=== PATIENT | female | born 1930 | race Caucasian/White ===

== ENCOUNTER 2017-05-01 04:56 | Inpatient (IN) | payer OTHER ==
[~2017-05-01] VITALS: Ht 154.9 cm; Wt 72.3 kg
[~2017-05-01 04:56] MED LIST: ASPIRIN EC81 M1 PO; CARVEDILOL6.25 M1 PO; COSOPT EYE DROP10 ML OD; FISH OIL 1,2001 EACH PO; FUROSEMIDE40 M1 PO; LASIX40 M1 PO; LATANOPROST2.5 ML OU; METAMUCIL660 GM PO; MULTIVITAMINS1 EAC9 PO; PRESERVISION A1 EAC1 PO; VITAMIN D1000 UNIT PO; ZETIA10 M1 PO
--- NOTE | 2017-05-01 05:02 | ED DYSPNEA/ASTHMA COMPLAINT ---
History of Present Illness General Chief Complaint: Dyspnea (COPD, CHF, Other) Stated Complaint: BIBA CHF? Source: patient Exam Limitations: no limitations Vital Signs & Intake/Output Vital Signs & Intake/Output Vital Signs Date Time Temp Pulse Resp B/P B/P Pulse O2 O2 Flow FiO2 Mean Ox Delivery Rate 05/01 712 97.4 68 18 112/60 98 Room Air 05/01 0514 98 Nasal 2.0L Cannula 05/01 509 97.8 63 20 118/60 98 Nasal 2.0L Cannula Allergies Coded Allergies: Penicillins (Intermediate, RASH 02/17/17) Reconcile Medications Aspirin (Ecotrin*) 81 MG TABLET.DR 1 TAB PO DAILY HEART/BLOOD (Reported) Carvedilol 6.25 MG TABLET 1 TAB PO BID HEART/BP (Reported) Cholecalciferol (Vitamin D3) (Vitamin D) 1,000 UNIT TABLET 1 TAB PO DAILY SUPPLEMENT (Reported) Dorzolamide HCl/Timolol Maleat (Cosopt Eye Drops) 22.3 MG-6.8 MG/ML DROPS 1 GTT OD BID RIGHT EYE (Reported) Ezetimibe (Zetia) 10 MG TABLET 1 TAB PO DAILY CHOLESTEROL (Reported) Fish Oil/Dha/Epa (Fish Oil 1,200 MG Fish Oil) 1,200 MG-144 MG-216 MG CAPSULE 1 CAP PO DAILY SUPPLEMENT (Reported) Furosemide (Lasix) 40 MG TABLET 1.5 TAB PO DAILY water pill Latanoprost 0.005 % DROPS 1 GTT OU QPM BOTH EYES (Reported) Multiple Vitamin (Multivitamins) 1 EACH TABLET 1 TAB PO DAILY SUPPLEMENT ( Reported) Psyllium Husk (Metamucil) (Unknown Strength) POWDER (Unknown Dose) PO BID SUPPLEMENT (Reported) Vit C/E/Zn/Coppr/Lutein/Zeaxan (Preservision Areds 2 Softgel) 250-200-40 CAPSULE 1 CAP PO BID SUPPLEMENT (Reported) Triage Nurses Notes Reviewed? yes Onset: Gradual Duration: hour(s):, week(s): Timing: recent history Severity: moderate, severe Activities at Onset: sleep Modifying Factors: Worsens With: other (ORTHOPNEA). Associated Symptoms: SHORTNESS OF BREATH HPI: 87 yo woman h/o cabg and chf, presents with shortness of breath tonight. She shares that, "Since I got a bad virus in March, I've had a hard time breathing.... They say that I have CHF... and then tonight I had real trouble breathing... I tried to lay down and couldn't catch my breath." 911 called. The medics arrived and found her tachypneic, 02 sat 89%. She was given 02 via nc, nitro x 2. She sat up. Upon arrival, her symptoms had mostly resolved. She notes lower extremity symmetrical edema. She has been compliant with her diet and her meds. She does not have chest pain, wheezing, phlegm. (Romel SCHAFER,Brian Morse) Past History Travel History Traveled to [place] past 21 day No Medical History Any Pertinent Medical History? see below for history Neurological: NONE EENT: NONE Cardiovascular: CHF, TRIPLE BYPASS 2012 Respiratory: NONE Gastrointestinal: NONE Hepatic: NONE Renal: NONE Musculoskeletal: NONE Psychiatric: NONE Endocrine: NONE Blood Disorders: NONE Cancer(s): NONE STEP DOWN NURSE/Reproductive: NONE History of MRSA: No History of VRE: No History of CDIFF: No Influenza Vaccine: 12/23/16 Surgical History Surgical History: CABG Psychosocial History Who do you live with Spouse What is your primary language Wolof Family History Hx Contributory? No (Romel SCHAFER,Brian Morse) Review of Systems Review of Systems Constitutional: Reports: no symptoms. EENTM: Reports: no symptoms. Respiratory: Reports: no symptoms. Cardiovascular: Reports: no symptoms. GI: Reports: no symptoms. Genitourinary: Reports: no symptoms. Musculoskeletal: Reports: no symptoms. Skin: Reports: no symptoms. Neurological/Psychological: Reports: no symptoms. Hematologic/Endocrine: Reports: no symptoms. Immunologic/Allergic: Reports: no symptoms. All Other Systems: Reviewed and Negative (Romel SCHAFER,Brian Morse) Physical Exam Physical Exam General Appearance: well developed/nourished, mild distress Head: atraumatic, normal appearance Eyes: Bilateral: normal appearance. Ears, Nose, Throat: normal pharynx, normal ENT inspection Neck: normal inspection, supple, full range of motion Respiratory: diminished breath sounds bilaterally Cardiovascular: regular rate/rhythm Gastrointestinal: normal bowel sounds, soft, non-tender, no organomegaly Rectal: normal exam, normal rectal tone, heme negative stool Extremities: 3-4+ bilateral pitting edema, Neurologic/Psych: no motor/sensory deficits, awake, alert, oriented x 3 Skin: intact, normal color Core Measures ACS in differential dx? No CVA/TIA Diagnosis No Sepsis Present: No Sepsis Focused Exam Completed? No (Romel SCHAFER,Brian Morse) Progress Differential Diagnosis: asthma, AMI, CHF, COPD, pneumonia Plan of Care: Orders Procedure Date/time Status Heart Healthy Diet 05/01 L Active Misc Message 05/01 0758 Active ED Holding Orders 05/01 0758 Active Admit to inpatient 05/01 0758 Active Vital Signs 05/01 0758 Active Code Status 05/01 0758 Active Add-on Test (ER Only) 05/01 0717 Active PARTIAL THROMBOPLASTIN TIME 05/01 0527 Complete PROTHROMBIN TIME 05/01 0527 Complete RAPID VIRAL INFLUENZA A 05/01 0522 Complete D-DIMER 05/01 0503 Complete TROPONIN LEVEL 05/01 0502 Complete LIPASE 05/01 0502 Complete HEPATIC FUNCTION PANEL 05/01 0502 Complete CBC WITHOUT DIFFERENTIAL 05/01 0502 Complete B-TYPE NATRIURETIC PEP (BNP) 05/01 0502 Complete BASIC METABOLIC PANEL 05/01 0502 Complete AMYLASE 05/01 0502 Complete EKG 05/01 0459 Active Current Medications Sig/Raghu Start time Last Medication Dose Stop Time Status Admin Heparin Sodium 25,000 UNIT Q24H 05/01 0700 UNVr 05/01 (Porcine) 0723 (Heparin) Sodium Chloride 500 ML Laboratory Tests 05/01/17 0527: Anion Gap 14, Estimated GFR 27 L, BUN/Creatinine Ratio 19.4, Glucose 108 H, Calcium 9.3, Total Bilirubin 0.8, Direct Bilirubin 0.4, AST 26, ALT 31, Alkaline Phosphatase 117, Troponin I 0.02, Qew-Y-Hxcksdfiymr Pept 15980 H, Total Protein 7.1, Albumin 3.9, Amylase 57, Lipase 355 H, PT 13.9 H, INR 1.33 H, APTT > 120 *H, D-Dimer High Sensitivty 838 H, CBC w Diff NO MAN DIFF REQ, RBC 3.22 L, MCV 103.7 H, MCH 33.5 H, MCHC 32.3 L, RDW 16.9 H, MPV 9.5, Gran % 57.5, Lymphocytes % 24.0, Monocytes % 13.3 H, Eosinophils % 4.6, Basophils % 0.6, Absolute Granulocytes 3.0, Absolute Lymphocytes 1.3, Absolute Monocytes 0.7 H, Absolute Eosinophils 0.2, Absolute Basophils 0 Microbiology 05/01 0435 NASOPHARYN: Influenza Virus A & B Rapid Smear - COMP Diagnostic Imaging: Viewed by Me: Radiology Read. Discussed w/RAD: Radiology Read. CXR Impression: PATIENT: TONIO RAMIREZ PRESENT AGE : 87 PATIENT ACCOUNT NO: [id number] : [birth year] LOCATION: [facility] ORDERING PHYSICIAN: Brian Urena MD SERVICE DATE: 05/01/17 EXAM TYPE: RAD - XRY-PORTABLE CHEST XRAY EXAMINATION: XR PORTABLE CHEST CLINICAL INFORMATION: Dyspnea COMPARISON: 02/19/2017 TECHNIQUE: Portable frontal view of the chest was obtained. FINDINGS: Lung volumes are symmetric. No focal consolidation is seen. There is linear atelectasis/scarring in the right midlung. No evidence of pneumothorax. Trace pleural effusions cannot be excluded. No overt pulmonary edema. The cardiac silhouette remains enlarged. Sternal wires are present. No acute osseous findings are seen. IMPRESSION: Possible trace pleural effusions. No focal consolidation. Enlarged cardiac silhouette. DICTATED BY: Jamie Romero MD DATE/TIME DICTATED:05/01/17601 [address] RELATIONS ADVISER:RIANA DATE/TIME TRANSCRIBED:05/01/17601 CONFIDENTIAL, DO NOT COPY WITHOUT APPROPRIATE AUTHORIZATION. <Electronically signed in Other Vendor System> SIGNED BY: Jamie Romero MD 05/01/17606 Initial ED EKG: inc lbbb, no change from prior, sinus tach Hand-Off Endorsed To: Antony Burton MD Endorsed Time: 723 Pending: other (hospitalist) (Romel SCHAFER,Brian Morse) Comments: 05/01/2017 7:31:20 AM patient signed out to me by Dr. 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 Patient presented with hypoxia and has elevated d-dimer requiring VQ scan and further evaluation. Awaiting hospitalist call back. 05/01/2017 7:47:03 AM case d/w dr betts who confirms a change was made to hospitalist schedule today. (Josephine SCHAFER,Antony Talamantes) Departure Departure Disposition: STILL A PATIENT Condition: Stable Clinical Impression Primary Impression: Congestive heart failure Secondary Impressions: Dyspnea, Hypoxia Referrals: Bia SCHAFER,Juan Medellin (PCP/Family) Departure Forms: Customer Survey General Discharge Information Comments 05/01/16, 7:06am... discussed with dr. alejandre who will ask dr. woodall to see patient. Admission Note Documentation of Exam: Documentation of any treatments & extenuating circumstances including Concerns Regarding Discharge (functional status, medication knowledge or non-compliance, living conditions, etc.) that warrant an admission rather than observation: pt with hypoxia, dyspnea, most consistent with chf, however, with benign cxr, elevated d-dimer, pt merits evaluation for PE. Due to creatinine of 1.8, pt cannot have ct angio, merits eval with v/q scan. pt placed on heparin. (Romel SCHAFER,Brian Morse) Admission Note Spoke With: Farhan Betts MD Documentation of Exam: Documentation of any treatments & extenuating circumstances including Concerns Regarding Discharge (functional status, medication knowledge or non-compliance, living conditions, etc.) that warrant an admission rather than observation: (Antony Burton MD) Critical Care Note Critical Care Note Critical Care Time: non-applicable (Brian Urena MD) Critical Care Note Critical Care Time: 30-74 min (Antony Burton MD)
[2017-05-01 05:44] LABS: ABSOLUTE BASOPHIL COUNT 0 /CUMM (0.0-0.2); ABSOLUTE EOSINOPHIL COUNT 0.2 /CUMM (0.0-0.7); ABSOLUTE LYMPH COUNT 1.3 /CUMM (1.2-3.4); ABSOLUTE MONOCYTE COUNT 0.7 /CUMM (0.10-0.60); BASOPHIL % 0.6 % (0.0-2.0); EOSINOPHIL % 4.6 % (0-5); GRANULOCYTE % 57.5 % (42.2-75.2); HEMATOCRIT 33.4 % (37-47); MEAN CORPUSCULAR HGB 33.5 PG (27.0-31.0); MEAN CORPUSCULAR HGB CONC 32.3 G/DL (33.0-37.0); MEAN CORPUSCULAR VOLUME 103.7 FL (81.0-99.0); MEAN PLATELET VOLUME 9.5 FL (7.4-10.4); PLATELET COUNT 163 /CUMM (130-400); RBC DISTRIBUTION WIDTH 16.9 % (11.5-14.5); RED BLOOD CELL CT 3.22 /CUMM (4.20-5.40); WHITE BLOOD CELL COUNT 5.3 /CUMM (4.8-10.8)
--- NOTE | 2017-05-01 06:07 | RADIOLOGY REPORT ---
EXAMINATION: XR PORTABLE CHEST CLINICAL INFORMATION: Dyspnea COMPARISON: 02/19/2017 TECHNIQUE: Portable frontal view of the chest was obtained. FINDINGS: Lung volumes are symmetric. No focal consolidation is seen. There is linear atelectasis/scarring in the right midlung. No evidence of pneumothorax. Trace pleural effusions cannot be excluded. No overt pulmonary edema. The cardiac silhouette remains enlarged. Sternal wires are present. No acute osseous findings are seen. IMPRESSION: Possible trace pleural effusions. No focal consolidation. Enlarged cardiac silhouette.
[2017-05-01 07:48] LABS: PT 13.9 SEC (9.4-12.5)
[2017-05-01 07:50] LABS: PTT > 120 SEC (25-37)
--- NOTE | 2017-05-01 09:16 | History & Physical ---
Pollo Blackburn 05/01/17 0907: General Information and HPI MD Statement: I have seen and personally examined TONIO LAKHANI and documented this H&P. The patient is a 87 year old F who presented with a patient stated chief complaint of worsening shortness of breath and increased oxygen requirements. Source of Information: patient Exam Limitations: no limitations History of Present Illness: Ms. Lakhani is a very pleasant 87 year old woman with PMH significant for coronary artery disease status post CABG 3 for severe multivessel disease, long -standing hypertension, hyperlipidemia presents to [facility] ED this morning with a chief complaint of worsening breathing symptoms. Patient states that for the last 2 - 3 nights, she has had a difficult time sleeping and often finds herself breathing hard at night. She denies any associated chest pain. She believes that her symptoms started to get worse when she and her had a upper respiratory virus in January. She was admitted the time and treated for CHF exacerbation. Upon discharge, her Lasix dose was increased to 60 mg daily from 40 mg daily. Since then, patient's breathing symptoms have progressively worsened. She was able to walk across 3 grocery stores prior to that, and now can only walk 24-36 feet before she gets short of breath. She has also noticed periods of palpitation, which she attributes to her frequent changes in medication. She has also noticed progressively worsening leg swelling, despite being extremely compliant with her Lasix and diet. Positive history for orthopnea, which is not new, patient has been sleeping in a recliner since her CABG in 2012. Since patient's discharge in February 2017, she has seen her advertising assistant Dr. Houston for persistently high heart rate. Her heart rate has gone as high as mid 120s since her discharge. Following this, a cardiology dose was increased from 6.25 mg twice a day to 25 mg twice a day. She still has been having some intermittent tachycardia. She has also had periods of lightheadedness, but no loss of consciousness or falls. Patient is ambulatory at baseline without a walker or cane and is in good functional status. She lives at home with her . Her last echocardiogram, it seems was in August 2016, and did show systolic as well as diastolic heart failure. Also, patient states that she was recently started on Entresto by Dr. Houston for heart failure. Review of systems is also positive for cough with scant clear sputum production, which has decreased over the last 1 month. No fevers or chills reported. Other systems reviewed and negative, exceptions above. Allergies/Medications Allergies: Coded Allergies: Penicillins (Intermediate, RASH 02/17/17) Home Med list Aspirin (Ecotrin*) 81 MG TABLET.DR 1 TAB PO DAILY HEART/BLOOD (Reported) Carvedilol 25 MG TABLET 1 TAB PO BID Heart (Reported) Cholecalciferol (Vitamin D3) (Vitamin D) 1,000 UNIT TABLET 1 TAB PO DAILY SUPPLEMENT (Reported) Dorzolamide HCl/Timolol Maleat (Cosopt Eye Drops) 22.3 MG-6.8 MG/ML DROPS 1 GTT OD BID RIGHT EYE (Reported) Ezetimibe (Zetia) 10 MG TABLET 1 TAB PO DAILY CHOLESTEROL (Reported) Fish Oil/Dha/Epa (Fish Oil 1,200 MG Fish Oil) 1,200 MG-144 MG-216 MG CAPSULE 1 CAP PO DAILY SUPPLEMENT (Reported) Furosemide (Lasix) 40 MG TABLET 1.5 TAB PO DAILY water pill Latanoprost 0.005 % DROPS 1 GTT OU QPM BOTH EYES (Reported) Multiple Vitamin (Multivitamins) 1 EACH TABLET 1 TAB PO DAILY SUPPLEMENT ( Reported) Psyllium Husk (Metamucil) (Unknown Strength) POWDER (Unknown Dose) PO BID SUPPLEMENT (Reported) Sacubitril/Valsartan (Entresto 24 MG-26 MG Tablet) 24 MG-26 MG TABLET 1 TAB PO DAILY HEART FAILURE (Reported) Vit C/E/Zn/Coppr/Lutein/Zeaxan (Preservision Areds 2 Softgel) 250-200-40 CAPSULE 1 CAP PO BID SUPPLEMENT (Reported) Past History Travel History Traveled to [place] past 21 day No Medical History Neurological: NONE EENT: NONE Cardiovascular: CHF, TRIPLE BYPASS 2012 Respiratory: NONE Gastrointestinal: NONE Hepatic: NONE Renal: NONE Musculoskeletal: NONE Psychiatric: NONE Endocrine: NONE Blood Disorders: NONE Cancer(s): NONE 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 Exam & Diagnostic Data Last 24 Hrs of Vital Signs/I&O Vital Signs Date Time Temp Pulse Resp B/P B/P Pulse O2 O2 Flow FiO2 Mean Ox Delivery Rate 05/01 07 97.4 68 18 112/60 98 Room Air 05/01 0514 98 Nasal 2.0L Cannula 05/01 05 97.8 63 20 118/60 98 Nasal 2.0L Cannula Intake & Output 05/01 1600 05/01 0800 05/01 0000 Intake Total Output Total Balance Patient 161 lb Weight Weight Standing Scale Measurement Method Physical Exam General Appearance Alert, Oriented X3, Cooperative, Mild Distress Sepsis Skin Exam (color): Normal for Ethnicity HEENT Atraumatic, PERRLA, Mucous Membr. moist/pink Cardiovascular Regular Rate, Normal S1, Normal S2 Lungs bilateral bibasilar crackles. Otherwise good air movement and upper and middle lobe. Abdomen Normal Bowel Sounds, Soft, distended. Extremities No Clubbing, 2+ pitting edema bilaterally., no tenderness. Last 24 Hrs of Labs/Jose Guadalupe: Laboratory Tests 05/01/17 0527: Anion Gap 14, Estimated GFR 27 L, BUN/Creatinine Ratio 19.4, Glucose 108 H, Calcium 9.3, Total Bilirubin 0.8, Direct Bilirubin 0.4, AST 26, ALT 31, Alkaline Phosphatase 117, Troponin I 0.02, Bxo-P-Wkqwwehzsmw Pept 61105 H, Total Protein 7.1, Albumin 3.9, Amylase 57, Lipase 355 H, PT 13.9 H, INR 1.33 H, APTT > 120 *H, D-Dimer High Sensitivty 838 H, CBC w Diff NO MAN DIFF REQ, RBC 3.22 L, MCV 103.7 H, MCH 33.5 H, MCHC 32.3 L, RDW 16.9 H, MPV 9.5, Gran % 57.5, Lymphocytes % 24.0, Monocytes % 13.3 H, Eosinophils % 4.6, Basophils % 0.6, Absolute Granulocytes 3.0, Absolute Lymphocytes 1.3, Absolute Monocytes 0.7 H, Absolute Eosinophils 0.2, Absolute Basophils 0 Microbiology 05/01 0535 NASOPHARYN: Influenza Virus A & B Rapid Smear - COMP Diagnostic Data EKG Results Sinus tachycardia-109. LVH plus IVCD. Abnormal EKG. CXR Results Possible trace pleural effusions. No focal consolidation. Enlarged cardiac silhouette. Assessment/Plan Assessment: 87-year-old woman with significant cardiac history here with progressive shortness of breath since February 2017, adherent with diuretic and diet recommendations, no physical exam evidence of acute on chronic CHF except for worsening leg swelling, with a proBNP less than previous admission, chest x-ray unrevealing of any pulmonary edema, but with a 1 month history of persistent tachycardia, uncontrolled with the use of higher doses of beta zena presentation concerning for thromboembolism-(acute versus subacute) versus CHF exacerbation. 1. Rule out pulmonary embolism: Moderate risk group, by well's criteria. D- dimer in indeterminant range for patient's age. Patient has been started on IV heparin. Needs VQ scan for further management, given tachycardia on today's EKG while on good dose beta zena and also reported history of unexplained tachycardia for 1 month. Echocardiogram. 2.? Acute on chronic CHF. Bibasilar crackles as well as 2+ pitting edema on exam. No JVD, ?no audible S3. Chest x-ray unrevealing of any pulmonary interstitial edema. ProBNP less than previous visit. Please obtain echocardiogram, patient with [place] [employer] functional classification-arguably II now and previous echo more than 6 months ago showing EF 30-35%, may warrant a change in management. Also Given her history of triple -vessel disease requiring CABG and recent episodes of tachycardia, obtaining an echocardiogram will better guide us regarding LV function, RVEF, PA/RV pressures etc. Rule out ACS with serial troponins and EKG. Recommendations regarding diuresis, per cardiology, will await recommendations. Also await recommendations regarding carvedilol dosing as well as Entresto (ARB + Neprilysin inhibitor). Discussed with Dr. Houston - Lasix IV 40 mg daily, will resume Coreg at home dose of 25 mg BID, hold Entresto. Will order VQ scan. 3. Acute on chronic CKD.? Secondary to Lasix or Entresto (recently started). Patient looks euvolemic on exam. She does have bibasilar crackles and long- standing chronic leg edema, no other signs of fluid overload. If kidney function does not improve, may need to rule out obstruction. No fluids for now. CHF diet. IV heparin for DVT prophylaxis. DNR/DNI. Core Measures/Misc (12/04) Acute Coronary Syndrome ACS Diagnosis: No Congestive Heart Failure Congestive Heart Failure Diagnosis No Cerebrovascular Accident CVA/TIA Diagnosis: No VTE (View Protocol) VTE Risk Factors Age>40 No Mechanical VTE Prophylaxis d/t N/A MechProphylax Ordered No VTE Pharm Prophylaxis d/t NA PharmProphylax ordered Sepsis (View protocol) Sepsis Present: No Ami Fairbanks MD 05/01/17 7004: Assessment/Plan As Ranked By This Provider Problem List: 1. Hypertension 2. Hyperlipidemia 3. CHF exacerbation Attending MD Review Statement Attending Statement Attending MD Statement: examined this patient, discuss w/resident/PA/METAL ANNEALER, agreed w/resident/PA/METAL ANNEALER, reviewed EMR data (avail), discussed with nursing, reviewed images Attending Assessment/Plan: 87-year-old female past medical history of coronary artery disease, systolic heart failure with most recent EF being in the 30s who has been seeing Dr. Evin Santos as an outpatient and being treated for acute systolic heart failure. He has recently increased her Lasix dose, started her on Entresto, all in the fairly recent past. She comes in with shortness of breath, tachycardia of unclear etiology and CHRYSTAL. At this point will bring her into telemetry and treat her for a CHF exacerbation with IV Lasix. Will have to hold the arb portion of the Entresto given the CHRYSTAL. We'll continue the beta zena and will repeat her echo. We'll trend her enzymes to make sure there is no acute ischemic component. Given that tachycardia and the ongoing question of pulmonary embolism, will get a VQ scan to rule that out. Until the VQ results will keep her on IV heparin and if negative will switch her to heparin for DVT prophylaxis.
--- NOTE | 2017-05-01 09:22 | Cons- Cardiology ---
General Information and HPI Consulting Request Date of Consult: 05/01/17 Requested By: Ami Fairbanks MD Reason for Consult: Congestive heart failure in a patient with ischemic heart disease and reduced LV function previously. Source of Information: patient, old records Exam Limitations: no limitations History of Present Illness: Kimberlee Lakhani is an 87-year-old female who presented in 12/2012 with severe chest pain. She did not have ST elevation initially but subsequently developed EKG changes and positive troponin. She had an ejection fraction of 35% to 40% with anterior wall motion abnormality. She was sent for cardiac catheterization urgently which was done on 12/27/2012. This showed 30% to 40% ostial left main, 90% proximal LAD followed by a second 80% lesion, 95% circumflex, and 90% ostial and 80% proximal right coronary artery stenosis. Her left ventriculogram showed an ejection fraction of 30% with anterior apical wall motion abnormality. The patient was sent urgently for bypass surgery on 12/28/2012. She also had an intraaortic balloon inserted. She had a left internal mammary bypass to the LAD, and saphenous vein graft to the second marginal branch and the distal right coronary artery. She had a prolonged postoperative period including intubation for 4-5 days and chest tubes to remove pleural fluid. She had some transient atrial fibrillation. She was eventually discharged to rehab and finally home. 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 Subsequently the patient went through a full cardiac rehabilitation program and did very well. When I saw her in 02/2014 she was fully functional and doing some exercise on her own and was totally asymptomatic. She was sent for a followup echo, which was done 02/27/2014 and showed a dilated distal LV and apex with EF 40%, PAP >70 mm Hg, minimal , mild to moderate AR, mod MR, dilated LA. She had a repeat echo in August of 2016 which showed a dilated distal left ventricle with an ejection fraction of 30% to 35%. There was mild to moderate aortic regurgitation and severe pulmonary hypertension. Kimberlee was doing well until 02/17/2017 when she became progressively short of breath and presented to the [facility] emergency department. She was found to be in congestive heart failure by chest x-ray and had a proBNP of 15,700. She was admitted and treated with diuretics. Her followup chest x-ray was improved, and she was discharged on 02/19/2017. I started her on Entresto in February, which she has been tolerating. Dr. Amezquita recently found her to be somewhat tachycardic in his office with a heart rate of 129 on EKG. We discussed this and we increased her Coreg to 12.5 mg twice a day.. When I saw her in the office in February her heart rate was down to 117, and I increased her Coreg to 25 mg twice a day. At her OV in late Mar Kimberlee was feeling somewhat short of breath on exertion. She has mild peripheral edema. Her states when she takes her pulse it can vary sometimes around 100 and sometimes around 50. Kimberlee was also complaining of dizziness, mostly postural, but occasionally when she is walking she gets weak for a second. She does have some occasional palpitations. She is wearing elastic stockings. Her current medical regimen includes carvedilol 25 mg b.i.d., Entresto daily, Zetia, Lasix 60 mg daily, and aspirin. At her office visit on April 18 I referred her to Dr. Perry for an EP evaluation of her persistent tachycardia and sent her for a Holter which actually she has not yet had. Kimberlee now states over the past couple of days she's been more short of breath and unable to lie flat. She has persistent edema. She was recently started on potassium for low potassium. She's had no chest pain, palpitations, dizziness. She was given one dose of IV Lasix and she has been started on heparin, for possibility of PE. Her chest x-ray documented congestive heart failure. Her initial EKG showed a uncertain mechanism supraventricular tachycardia at a rate of about 110, but when I examined her heart rate was 60 on the monitor and I ordered a follow-up EKG, which showed sinus rhythm with 1st degree AV Block. Her initial troponin is negative and her proBNP is 13,400. Allergies/Medications Allergies: Coded Allergies: Penicillins (Intermediate, RASH 02/17/17) Home Med List: Amiodarone HCl 200 MG TABLET 0 PO AD AV Florina Tachycardia On Take 05/04-05/08 1 tablet 3 times a day and then 2 times a day for one week Aspirin (Ecotrin*) 81 MG TABLET.DR 1 TAB PO DAILY HEART/BLOOD (Reported) Carvedilol 25 MG TABLET 1 TAB PO BID Heart (Reported) Cholecalciferol (Vitamin D3) (Vitamin D) 1,000 UNIT TABLET 1 TAB PO DAILY SUPPLEMENT (Reported) Dorzolamide HCl/Timolol Maleat (Cosopt Eye Drops) 22.3 MG-6.8 MG/ML DROPS 1 GTT OD BID RIGHT EYE (Reported) Ezetimibe (Zetia) 10 MG TABLET 1 TAB PO DAILY CHOLESTEROL (Reported) Fish Oil/Dha/Epa (Fish Oil 1,200 MG Fish Oil) 1,200 MG-144 MG-216 MG CAPSULE 1 CAP PO DAILY SUPPLEMENT (Reported) Furosemide (Lasix) 40 MG TABLET 1 TAB PO BID Heart failure Please take as prescribed Latanoprost 0.005 % DROPS 1 GTT OU QPM BOTH EYES (Reported) Multiple Vitamin (Multivitamins) 1 EACH TABLET 1 TAB PO DAILY SUPPLEMENT ( Reported) Psyllium Husk (Metamucil) (Unknown Strength) POWDER (Unknown Dose) PO BID SUPPLEMENT (Reported) Sacubitril/Valsartan (Entresto 24 MG-26 MG Tablet) 24 MG-26 MG TABLET 1 TAB PO DAILY HEART FAILURE (Reported) Vit C/E/Zn/Coppr/Lutein/Zeaxan (Preservision Areds 2 Softgel) 250-200-40 CAPSULE 1 CAP PO BID SUPPLEMENT (Reported) Current Medications: Current Medications Sig/Raghu Start time Last Medication Dose Route Stop Time Status Admin Acetaminophen 650 MG Q6P PRN 05/01 0900 UNVr PO Aspirin Buffered 81 MG DAILY 05/01 1000 UNVr PO Cholecalciferol 400 IU DAILY 05/01 1000 UNVr PO Ezetimibe 10 MG DAILY 05/01 1000 UNVr PO Furosemide 0 .STK-MED ONE 05/01 0522 DC IV Furosemide 40 MG ONCE ONE 05/01 0515 DC 05/01 IV 05/01 0516 0521 Heparin Sodium 0 .STK-MED ONE 05/01 0711 DC (Porcine) .ROUTE Heparin Sodium 5,000 UNIT ONCE ONE 05/01 07 DC 05/01 (Porcine) IV 05/01 0701 0723 Heparin Sodium 25,000 UNIT Q24H 05/01 0700 AC 05/01 (Porcine) IV 0723 Sodium Chloride 500 ML Latanoprost 1 GTT QPM 05/01 2200 UNVr OPH Multivitamins 1 TAB DAILY 05/01 1000 UNVr Therapeutic PO Review of Systems Review of Systems: She has no other complaints in the review of systems Past History Travel History Traveled to [place] past 21 day No Medical History Neurological: NONE EENT: NONE Cardiovascular: CHF, TRIPLE BYPASS 2013 Respiratory: NONE Gastrointestinal: NONE Hepatic: NONE Renal: NONE Musculoskeletal: NONE Psychiatric: NONE Endocrine: NONE Blood Disorders: NONE Cancer(s): NONE 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: 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 Surgical History Surgical History: CABG Exam & Diagnostic Data Vital Signs and I&O Vital Signs Date Time Temp Pulse Resp B/P B/P Pulse O2 O2 Flow FiO2 Mean Ox Delivery Rate 05/01 0713 97.4 68 18 112/60 98 Room Air 05/01 0514 98 Nasal 2.0L Cannula 05/01 0510 97.8 63 20 118/60 98 Nasal 2.0L Cannula Intake & Output 05/01 1600 05/01 0800 05/01 0000 04/30 1600 04/30 0800 04/30 0000 Intake Total Output Total Balance Patient 161 lb Weight Weight Standing Scale Measurement Method Physical Exam: On physical she is fairly comfortable at this time HEENT exam is unremarkable Neck veins are not distended Carotids are normal Chest a few basilar rales Heart regular rhythm, normal rate, grade 2/6 widespread holosystolic murmur Extremities 1-2+ edema Assessment/Plan Assessment/Plan Kimberlee is an 87-year-old female with ischemic heart disease and recurrent congestive heart failure. She is this recently hospitalized for CHF. Her chest x-ray documents CHF and her BNP is elevated. There is question of pulmonary embolism but I think the overwhelming evidence is for congestive heart failure at this point. Interestingly her initial EKG showed a supraventricular tachycardia at a rate of about 110 and her follow-up EKG now shows sinus rhythm with first-degree AV block at a rate of 55. Her enzymes are negative so far. I recommend an echocardiogram since her last echo was 8 or 9 months ago. I recommend serial EKGs and enzymes. I recommend keeping her on IV Lasix for now. I recommend an EP consultation with Dr. Perry which I will arrange. Copies To: Bia SCHAFER,Juan Perry MD,[facility] Consult Acknowledgment - Thank you for your consult request.
[2017-05-01] MEDS ORDERED: CARVEDILOL25 M1 PO (10:33)
[2017-05-01] MEDS ORDERED: ENTRESTO 24 MG1 EACH PO (10:37)
[2017-05-01 11:55] VITALS: BP 124/68
--- NOTE | 2017-05-01 13:44 | Admission Certification ---
Admission Certification Certification Statement - As attending physician, I certify that at the time of - admission, based on clinical presentation, severity of - symptoms, need for further diagnostic testing and - therapeutic interventions, and risk of adverse outcomes - without in-hospital treatment, in my clinical assessment, - this patient requires an acute hospital stay for a minimum - of two nights or longer. I have also considered psychsocial - factors such as support system, advanced age, financial - issues, cognitive issues, and failed out-patient treatments, - past re-admission history, safety of patient, and lack of - compliance as applicable. Specific rationale supporting this admission is: Acute CHF and tachycardia
[2017-05-01 14:44] LABS: PTT > 120 SEC (25-37)
--- NOTE | 2017-05-01 17:20 | NUCLEAR MEDICINE REPORT ---
EXAMINATION: PULMONARY VENTILATION PERFUSION STUDY CLINICAL INFORMATION: Persistent tachycardia and worsening shortness of breath. COMPARISON: No prior lung scan is available for comparison. A chest radiograph dated 05/01/2017, the same date as this lung scan, is available for comparison. TECHNIQUE: Serial gamma scintillation camera images were obtained over the posterior chest during the single breath, equilibrium rebreathing and washout of 10.1 mCi Xe 133 gas. The patient then received 3.6 mCi Tc-99m MAA intravenously and a 6-view perfusion study was performed. FINDINGS: Ventilation images: On the single breath and equilibrium images there is homogeneous distribution of gas bilaterally. During the washout phase there is no abnormal retention. Perfusion images: No segmental perfusion defects are present. There is some heterogeneity in the distribution of activity bilaterally. There is a very small subsegmental perfusion defect at the right lung apex an another tiny subsegmental defect posteriorly in the left mid lung field. Some heterogeneity is present in the other lung [place] but no additional focal anatomic appearing perfusion defects are present. The cardiac silhouette is moderately dilated. The contemporaneous chest radiograph shows possible trace bilateral pleural effusions and an enlarged cardiac silhouette. IMPRESSION: Low probability of pulmonary embolism. Cardiomegaly.
--- NOTE | 2017-05-01 19:46 | Cons- Cardiology ---
General Information and HPI Consulting Request Date of Consult: 05/01/17 Requested By: Tiki SCHAFER,Ami Houston MD, Juan Reason for Consult: Supraventricular tachycardia in the setting of congestive heart failure Source of Information: patient, family, old records Exam Limitations: no limitations History of Present Illness: I was asked by Dr. Juan Houston to see this patient in regards to recurrent supraventricular tachycardia that is been seen several times in association with congestive heart failure. To review her history Mrs. Gibson is an extremely pleasant 87-year-old female with an extensive cardiac history. In December 2012 she suffered an anterior myocardial infarction. Cardiac catheterization done on 12/27/2012 showed a 30-40% ostial left main lesion, and 90% proximal LAD lesion, an 80% more distal LAD lesion, a 95% circumflex lesion, a 95% ostial RCA lesion, an 80% proximal RCA stenosis, and an EF as low as 30% with apical wall motion abnormality. On 12/28/2012 she underwent CABG with a KIRBY to the LAD, saphenous vein graft to the second marginal and a saphenous vein graft to the distal RCA. She did apparently have postoperative paroxysmal atrial fibrillation. Next She was followed closely by Dr. Houston and she has had serial echoes. An echo done on 03/02/2013 showed an apical aneurysm an EF of 40% a dilated left atrium there is moderate MR and TR and pulmonary hypertension with a PA pressure of 60- 65. Another echo done on 02/27/2014 showed an EF 40% with a PA pressure greater than 70 moderate mitral regurgitation mild aortic stenosis mild to moderate aortic insufficiency and a dilated left atrium. A more recent echo done in August 2016 shown an EF that was lower at 30-35% there was severe pulmonary hypertension and mild to moderate aortic insufficiency. She was admitted more recently on 02/17/2017 with increasing shortness of breath she had a marked elevation in her BNP at 15,700. An EKG from February 18 shows that she is in supraventricular tachycardia at a rate of 1 10 bpm. P wave activity is not clearly visible. The differential is AV dane reentry tachycardia versus an atrial tachycardia. I would note that the patient has never known herself to have significant palpitations although more recently she has had occasional palpitations. [place] One point she was started on Entresto and as an outpatient Juan Amezquita MD found her to have a heart rate of roughly 130 beats minute at that point her carvedilol was increased to 12-1/2 mg twice a day. When she followed up with Dr. Houston in February again she had a heart rate of roughly 117 in the office and was clearly in an abnormal rhythm and her carvedilol was increased to 25 mg twice a day at that time. When Dr. Houston saw her on April 18 it was noted by her that her heart rate was in the 100s at times but at times in the 50s to 60s and she was having occasional palpitations. A Holter monitor was ordered and EP consultation was requested with myself but neither of these had yet been done. She is admitted now today on May 01 to the emergency room with increasing shortness of breath. She did have a viral syndrome in the past week or 2 and noted that since then she has not really recovered. She appears to be in congestive heart failure with a BNP of 13,400. She has just returned from a ventilation/perfusion lung scan looking for pulmonary emboli. Admission EKG today showed again that she was in an SVT at a rate of 109 beats minute. Again it is difficult see definite P wave activity suggestive that this might even be dane reentry tachycardia although in her age group an atrial tachycardia is certainly possible. When she is in sinus rhythm her P-wave amplitude is very low thus it is difficult to see P waves during the tachycardia. She subsequently spontaneously converted to sinus rhythm and has stayed in sinus rhythm for some time. An echo is pending. Allergies/Medications Allergies: Coded Allergies: Penicillins (Intermediate, RASH 02/17/17) Home Med List: Aspirin (Ecotrin*) 81 MG TABLET. 1 TAB PO DAILY HEART/BLOOD (Reported) Carvedilol 25 MG TABLET 1 TAB PO BID Heart (Reported) Cholecalciferol (Vitamin D3) (Vitamin D) 1,000 UNIT TABLET 1 TAB PO DAILY SUPPLEMENT (Reported) Dorzolamide HCl/Timolol Maleat (Cosopt Eye Drops) 22.3 MG-6.8 MG/ML DROPS 1 GTT OD BID RIGHT EYE (Reported) Ezetimibe (Zetia) 10 MG TABLET 1 TAB PO DAILY CHOLESTEROL (Reported) Fish Oil/Dha/Epa (Fish Oil 1,200 MG Fish Oil) 1,200 MG-144 MG-216 MG CAPSULE 1 CAP PO DAILY SUPPLEMENT (Reported) Furosemide (Lasix) 40 MG TABLET 1.5 TAB PO DAILY water pill Latanoprost 0.005 % DROPS 1 GTT OU QPM BOTH EYES (Reported) Multiple Vitamin (Multivitamins) 1 EACH TABLET 1 TAB PO DAILY SUPPLEMENT ( Reported) Psyllium Husk (Metamucil) (Unknown Strength) POWDER (Unknown Dose) PO BID SUPPLEMENT (Reported) Sacubitril/Valsartan (Entresto 24 MG-26 MG Tablet) 24 MG-26 MG TABLET 1 TAB PO DAILY HEART FAILURE (Reported) Vit C/E/Zn/Coppr/Lutein/Zeaxan (Preservision Areds 2 Softgel) 250-200-40 CAPSULE 1 CAP PO BID SUPPLEMENT (Reported) Current Medications: Current Medications Sig/Raghu Start time Last Medication Dose Route Stop Time Status Admin Acetaminophen 650 MG Q6P PRN 05/01 0900 AC PO Aspirin Buffered 81 MG DAILY 05/01 1000 AC 05/01 PO 1025 Carvedilol 25 MG BID 05/01 2200 AC PO Cholecalciferol 400 IU DAILY 05/01 1000 AC 05/01 PO 1038 Ezetimibe 10 MG DAILY 05/01 1000 AC 05/01 PO 1025 Furosemide 40 MG DAILY 05/02 1000 AC IV Furosemide 0 .STK-MED ONE 05/01 0522 DC IV Furosemide 40 MG ONCE ONE 05/01 0515 DC 05/01 IV 05/01 0516 0521 Heparin Sodium 0 .STK-MED ONE 05/01 0711 DC (Porcine) .ROUTE Heparin Sodium 5,000 UNIT ONCE ONE 05/01 0700 DC 05/01 (Porcine) IV 05/01 0701 0723 Heparin Sodium 25,000 UNIT Q24H 05/01 0700 AC 05/01 (Porcine) IV 0723 Sodium Chloride 500 ML Latanoprost 1 GTT QPM 05/01 2200 AC OPH Multivitamins 0 .STK-MED ONE 05/01 1026 DC PO Multivitamins 1 TAB DAILY 05/01 1000 AC 05/01 Therapeutic PO 1025 Review of Systems Review of Systems: Constitutional: Negative for decreased appetite, weakness, malaise/fatigue, weight gain, weight loss HENT: Negative for congestion, hearing loss, hoarse voice, nosebleeds, sore throat, tinnitus Eyes: Negative for blurred vision, double vision, photophobia, redness, visual disturbances Cardiovascular: Negative for chest pain, POSITIVE FOR shortness of breath, POSITIVE FOR dyspnea on exertion, POSITIVE FOR irregular heartbeat/palpitations, POSITIVE FOR swelling, NEGATIVE FOR near syncope, syncope, POSITIVE FOR orthopnea, paroxysmal nocturnal dyspnea, NEGATIVE FOR claudication, cyanosis Respiratory: Negative for cough, hemoptysis, POSITIVE FOR shortness of breath, NEGATIVE FOR snoring, sleep apnea/sleep disordered breathing, sputum production, wheezing Endocrine: Negative for cold intolerance, heat intolerance, missed menstrual periods Hematologic/Lymphatic: Negative for adenopathy, abnormal bleeding, easy bruisability Skin: Negative for flushing, itching, rashes, skin cancer/suspicious lesions Musculoskeletal: Negative for arthritis, back pain, joint swelling, muscle cramps, muscle weakness Gastrointestinal: Negative for abdominal pain, change in bowel habits, constipation, diarrhea, dysphagia, heartburn, hemorrhoids, melena, nausea, vomiting Genitourinary: Negative for urinary incontinence, dysuria, flank pain, frequency , hematuria, nocturia, urgency Neurological: Negative for excessive daytime sleepiness, dizziness, focal weakness, headaches, lightheadedness, numbness, paresthesias, seizures, tremors, vertigo Psychiatric/behavioral: Negative for depression, hallucinations, memory loss, substance abuse, suicidal ideas, thoughts of violence, insomnia, nervousness/ anxiety Allergic/Immunologic: Negative for environmental allergies ALL OTHER SYSTEMS REVIEWED AND ARE NEGATIVE Past History Travel History Traveled to [place] past 21 day No Medical History Blood Transfusion Hx: No Neurological: NONE EENT: NONE Cardiovascular: CHF, TRIPLE BYPASS 2013 Respiratory: NONE Gastrointestinal: NONE Hepatic: NONE Renal: NONE Musculoskeletal: osteoarthritis, osteoporosis Psychiatric: NONE Endocrine: NONE Blood Disorders: NONE Cancer(s): NONE 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 Home Services at Home: None Smoking Status: Never Smoked Exam & Diagnostic Data Vital Signs and I&O Vital Signs Date Time Temp Pulse Resp B/P B/P Pulse O2 O2 Flow FiO2 Mean Ox Delivery Rate 05/01 1534 Room Air 05/01 1436 Room Air 05/01 1155 97.7 58 18 124/68 96 Room Air 05/01 1148 96 Room Air 05/01 1026 97.4 62 20 122/62 97 Room Air 05/01 0713 97.4 68 18 112/60 98 Room Air 05/01 0514 98 Nasal 2.0L Cannula 05/01 05 97.8 63 20 118/60 98 Nasal 2.0L Cannula Intake & Output 05/01 0805/01 0000 04/30 0000 Intake Total 520 Output Total 500 Balance 20 Intake, IV 120 Intake, Oral 400 Output, Urine 500 Patient 163 lb 161 lb Weight Weight Bed scale Standing Scale Measurement Method Physical Exam: General/Constitutional: Oriented to person, place, and time. In no distress. Well-developed, well-nourished. Vital signs: see above. Head: Normocephalic/atraumatic Eyes: No xanthelasma or scleral icterus. Conjunctivae normal. Mouth: Moist mucous membranes without pallor or cyanosis Neck: Supple. No jugular venous distention, carotid bruits, thyromegaly Thorax/lungs/pulmonary: No chest deformity. Effort normal without respiratory distress. Lungs clear without wheezes or rales. DECREASED BREATH SOUNDS AT BASES Heart/Cardiovascular: Normal S1, S2, 2/6 MR AND MURMURS, CANNOT APPRECIATE A DIASTOLIC MURMUR OR S3, or S4 Abdomen/GI: No distention, tenderness or masses Extremities: No cyanosis, clubbing, 2 PLUS PERIPHERAL EDEMA Neuro: Alert and oriented to person, place, time. Grossly non-focal. Skin: Warm and dry. No diaphoresis. No major rashes. No erythema. No pallor or cyanosis. Psychiatric: Normal mood and affect, behavior appears normal. Labs/Jose Guadalupe Results: Laboratory Tests 05/01 05/01 05/01 05/01 1725 1407 1323 0527 Chemistry Sodium (137 - 145 mmol/L) 142 Potassium (3.5 - 5.1 mmol/L) 4.7 Chloride (98 - 107 mmol/L) 106 Carbon Dioxide (22 - 30 mmol/L) 22 Anion Gap (5 - 16) 14 BUN (7 - 17 mg/dL) 35 H Creatinine (0.5 - 1.0 mg/dL) 1.8 H Estimated GFR (>60 ml/min) 27 L BUN/Creatinine Ratio (7 - 25 %) 19.4 Glucose (65 - 99 mg/dL) 108 H Calcium (8.4 - 10.2 mg/dL) 9.3 Total Bilirubin (0.2 - 1.3 mg/dL) 0.8 Direct Bilirubin (< 0.4 mg/dL) 0.4 AST (14 - 36 U/L) 26 ALT (9 - 52 U/L) 31 Alkaline Phosphatase (<127 U/L) 117 Troponin I (< 0.11 ng/ml) 0.02 0.02 0.02 Xny-[id number] Pept (<125 pg/mL) 52405 H Total Protein (6.3 - 8.2 g/dL) 7.1 Albumin (3.5 - 5.0 g/dL) 3.9 Amylase (30 - 110 U/L) 57 Lipase (23 - 300 U/L) 355 H Coagulation PT (9.4 - 12.5 SEC) 13.9 H INR (0.90 - 1.19) 1.33 H APTT (25 - 37 SEC) > 120 *H > 120 *H D-Dimer High Sensitivty (0 - 243 ng/ml) 838 H Hematology CBC w Diff NO MAN DIFF REQ WBC (4.8 - 10.8 /CUMM) 5.3 RBC (4.20 - 5.40 /CUMM) 3.22 L Hgb (12.0 - 16.0 G/DL) 10.8 L Hct (37 - 47 %) 33.4 L MCV (81.0 - 99.0 FL) 103.7 H MCH (27.0 - 31.0 PG) 33.5 H MCHC (33.0 - 37.0 G/DL) 32.3 L RDW (11.5 - 14.5 %) 16.9 H Plt Count (130 - 400 /CUMM) 163 MPV (7.4 - 10.4 FL) 9.5 Gran % (42.2 - 75.2 %) 57.5 Lymphocytes % (20.5 - 51.1 %) 24.0 Monocytes % (1.7 - 9.3 %) 13.3 H Eosinophils % (0 - 5 %) 4.6 Basophils % (0.0 - 2.0 %) 0.6 Absolute Granulocytes (1.4 - 6.5 /CUMM) 3.0 Absolute Lymphocytes (1.2 - 3.4 /CUMM) 1.3 Absolute Monocytes (0.10 - 0.60 /CUMM) 0.7 H Absolute Eosinophils (0.0 - 0.7 /CUMM) 0.2 Absolute Basophils (0.0 - 0.2 /CUMM) 0 Diagnostic Data EKG Results When she is in tachycardia no definite P waves are visible. She has left anterior fascicular block an IVCD and very poor R-wave progression. Heart rate roughly 110. Sinus rhythm the QRS complexes are the same. She has low P wave amplitude and borderline first-degree AV block. Assessment/Plan Assessment/Plan My assessment is that Mrs. Gibson has significant congestive heart failure with symptoms and a markedly elevated BNP. She clearly has been in SVT a significant majority of the time as evidenced by her last admission, outpatient visits, and her current admission. I am torn between the diagnoses of an automatic atrial tachycardia versus AV dane reentrant tachycardia. In favor of AV node reentry is the fact that I do not see definite P waves and the rate of her tachycardia is fairly similar on each occasion. Against AV node reentry is the fact that she has not had lifelong intermittent palpitations and to have AV node reentry present at her age is very atypical. Given her large left atrium and postoperative atrial fibrillation an ectopic atrial tachycardia statistically is more likely but again I cannot rule out AV node reentry. Next I do think we should be fairly aggressive at suppressing this arrhythmia although it is clearly not the most important cause of her heart failure. Her significant left ventricular systolic dysfunction diastolic dysfunction aortic regurgitation and mitral regurgitation are all playing a major role. I offered the patient and her family 2 options. One option will be to place her on amiodarone. The difficulty here will be long-term toxicity, production of bradycardia, and more importantly difficulty in determining whether this is working or not. She would need frequent monitors to determine whether or not she is maintaining sinus rhythm. However given her advanced age amiodarone is certainly a very reasonable option. The other option would be for a attempt at catheter ablation. If she has AV node reentry our success rate would be reasonably high. Given her age and first -degree AV block if she does have AV node reentry her chance of needing a pacemaker would probably be in the range of 5-10% as opposed to a younger population with normal [place] intervals were I would quote a less than 1% incidence. If she had AVNRT this would very likely keep the procedure on the right side of the heart which is less risky. I would probably not address left-sided atrial tachycardias that there are present but we might also find a right atrial tachycardia. We could thus approach her by noting we would look for AV node reentry or a right-sided atrial tachycardia and avoid going to the left side. It would not be unreasonable to pursue this approach before going to amiodarone. Do think the patient himself is leaning towards a conservative approach of amiodarone but I would value Dr. Houston's input as he knows the patient the best. In the meantime we will see what her echo shows. We will see what her ventilation/perfusion scan shows. We will see how she responds diuresis. Her Entresto can probably be restarted in a twice a day dosing but I will leave this for Dr. Houston to decide on. Given her significant elevation in MCV I would check a B12 level but I doubt this will be abnormal. Overall given her advanced age left ventricular dysfunction recurrent congestive heart failure and valvular heart disease her prognosis is guarded. Again I will discuss with Dr. Houston the options of amiodarone versus an attempt at ablation. Copies To: Tiki SCHAFER,Ami Croft; Bia SCHAFER,Juan Medellin; Vicky SCHAFER,Turner Croft; Celso SCHAFER, Juan Dhillon Consult Acknowledgment - Thank you for your consult request.
[2017-05-01 22:26] VITALS: BP 120/78
[2017-05-02 05:47] VITALS: BP 102/62
[2017-05-02 08:25] LABS: ABSOLUTE BASOPHIL COUNT 0 /CUMM (0.0-0.2); ABSOLUTE EOSINOPHIL COUNT 0.2 /CUMM (0.0-0.7); ABSOLUTE GRANULOCYTE CT 2.4 /CUMM (1.4-6.5); ABSOLUTE LYMPH COUNT 1.2 /CUMM (1.2-3.4); ABSOLUTE MONOCYTE COUNT 0.5 /CUMM (0.10-0.60); BASOPHIL % 0.7 % (0.0-2.0); EOSINOPHIL % 4.6 % (0-5); GRANULOCYTE % 54.5 % (42.2-75.2); HEMATOCRIT 29.5 % (37-47); MEAN CORPUSCULAR HGB 34.3 PG (27.0-31.0); MEAN CORPUSCULAR HGB CONC 33.2 G/DL (33.0-37.0); MEAN CORPUSCULAR VOLUME 103.4 FL (81.0-99.0); MEAN PLATELET VOLUME 10.1 FL (7.4-10.4); PLATELET COUNT 140 /CUMM (130-400); RBC DISTRIBUTION WIDTH 17.5 % (11.5-14.5); RED BLOOD CELL CT 2.85 /CUMM (4.20-5.40); WHITE BLOOD CELL COUNT 4.4 /CUMM (4.8-10.8)
--- NOTE | 2017-05-02 12:40 | PN- Housestaff ---
Ruddy SCHAFER,Vikram 05/02/17 1240: Subjective Follow-up For: shortness of breath Complaints: no complaints Tele-Events Since Last Visit: nornal sinus rhythm, sinus tachycardia. Subjective: Pt followed and examined by me today. She was resting comfortably in her recliner and did not appear to be in distress. Upon questioning, she appeared confused about why she was in the hospital, but was oriented otherwise. No overnight events, VSS. Review of Systems Constitutional: Reports: no symptoms. Objective Last 24 Hrs of Vital Signs/I&O Vital Signs Date Time Temp Pulse Resp B/P B/P Pulse O2 O2 Flow FiO2 Mean Ox Delivery Rate 05/02 2135 62 112/70 05/02 2135 62 11205/02 1705 97.5 57 20 05/02 1600 95 Room Air Room Air 05/02 1441 97.5 57 20 97 Room Air 05/02 1326 56 05/02 0843 56 05/02 0753 94 Room Air 05/02 0547 98.9 55 20 /62 95 05/02 0000 Room Air Intake & Output 05/02 1600 05/02 0800 05/02 0000 Intake Total 820 50 130 Output Total 800 400 250 Balance 20 -350 -120 Intake, IV 20 30 Intake, Oral 800 50 100 Number 1 Bowel Movements Output, Urine 800 400 250 Patient 71.327 kg Weight Weight Bed scale Measurement Method Physical Exam General Appearance: Alert, Oriented X3, Cooperative, No Acute Distress, on room air Other Physical Findings: HEENT Atraumatic, PERRLA, Mucous Membr. moist/pink Cardiovascular Regular Rate, Normal S1, Normal S2 Lungs bilateral bibasilar crackles (decreased compared to yesterday). Otherwise good air movement and upper and middle lobe. Abdomen Normal Bowel Sounds, Soft, distended. Extremities No Clubbing, 1+ pitting edema bilaterally, no tenderness. Current Medications: Current Medications Sig/Raghu Start time Last Medication Dose Route Stop Time Status Admin Acetaminophen 650 MG Q6P PRN 05/01 0900 AC PO Amiodarone HCl 200 MG TID 05/02 1315 AC 05/02 PO 2135 Aspirin Buffered 81 MG DAILY 05/01 1000 AC 05/02 PO 0843 Carvedilol 25 MG BID 05/01 2200 AC 05/02 PO 213 Cholecalciferol 400 IU DAILY 05/01 1000 AC 05/02 PO 0843 Ezetimibe 10 MG DAILY 05/01 1000 AC 05/02 PO 0843 Furosemide 40 MG DAILY 05/02 1000 AC 05/02 IV 0843 Heparin Sodium 5,000 UNIT Q8 05/01 2200 AC 05/02 (Porcine) SC 2134 Latanoprost 1 GTT QPM 05/01 2200 AC 05/02 OPH 2136 Multivitamins 1 TAB DAILY 05/01 1000 AC 05/02 Therapeutic PO 0843 Non-Formulary 0 SEE ADMIN CRITERIA 05/02 1715 UNV Medication ANY Patient Medication 1 ED ONE ONE 05/02 1100 DC 05/02 Teaching ED 05/02 1101 1705 Last 24 Hrs of Lab/Jose Guadalupe Results Last 24 Hrs of Labs/Mics: Laboratory Tests 05/02/17 0655: Anion Gap 12, Estimated GFR 28 L, BUN/Creatinine Ratio 21.8, Free T4 1.52, Total T3 0.98, TSH &T3 &Free T4 Intrp 7.930 H, CBC w Diff NO MAN DIFF REQ, RBC 2.85 L, MCV 103.4 H, MCH 34.3 H, MCHC 33.2, RDW 17.5 H, MPV 10.1, Gran % 54.5, Lymphocytes % 28.3, Monocytes % 11.9 H, Eosinophils % 4.6, Basophils % 0.7, Absolute Granulocytes 2.4, Absolute Lymphocytes 1.2, Absolute Monocytes 0.5 , Absolute Eosinophils 0.2, Absolute Basophils 0 Assessment/Plan Assessment: 87-year-old woman with significant cardiac history: coronary artery disease status post CABG 3 for severe multivessel disease, long-standing hypertension, HFrEF (EF in 30s), hyperlipidemia, presented with worsening shortness of breath since February 2017, adherent with diuretic and diet recommendations, no physical exam evidence of acute on chronic CHF except for worsening leg swelling , with a proBNP less than previous admission, chest x-ray unrevealing of any pulmonary edema, but with a 1 month history of persistent tachycardia, uncontrolled with the use of higher doses of beta zena presentation concerning for thromboembolism-(acute versus subacute) versus CHF exacerbation. She is currently being managed in telemetry floor for the following issues: 1. Acute on chronic congestive heart failure (systolic): Patient's clinical features are suggestive of acute CHF, and although her pro- BNP is high, it has remained high in previous occasions as well. Given her worsening symptoms, we are getting another Echo and following cardiology recs. She was recently started on Entresto (low dose) which will be continued from tomorrow (home medication, pt's will bring it from home, needs pharmacy verification) as our in-patient pharmacy only has a higher dose Entresto which cannot be broken. Patient started on Amiodarone today after reviweing the case in detail with telemetry registered nurse Dr Perry. Will continue to watch her BP closely, and if decreases, will reduce the dose of BB. Of note, ACS was ruled out with serial trop and EKG. Also, initial suspicion of pulmonary embolism was ruled out by a low probability VQ scan. Subsequently, IV Heparin was stopped. 2. Acute on chronic CKD. Likely cardio-renal syndrome: Patient looks euvolemic on exam and received a dose of Lasix yesterday, with creatinine slightly improving, rather than worsening, sow ill continue to diurese her and will follow cardiology recs. Will continue her other home meds otherwise (multi-vitamin). CHF diet. SQ heparin for DVT prophylaxis. DNR/DNI. Problem List: 1. Congestive heart failure Pain Ratin Pain Location: - Pain Goal: Pain 4 or less Pain Plan: prn Tomorrow's Labs & Rationales: BEP
--- NOTE | 2017-05-02 13:06 | PN- Cardiology ---
Subjective Subjective: The patient is feeling fairly well. Her breathing is improved. She appears to be diuresing on Lasix. Her lung scan was low probability for pulmonary emboli. Heparin has been discontinued. Her enzymes are negative 3. She has remained in sinus rhythm since admission. Her blood pressure is in the 100 range. Objective Vital Signs and I&Os Vital Signs Date Time Temp Pulse Resp B/P B/P Pulse O2 O2 Flow FiO2 Mean Ox Delivery Rate 05/02 0843 56 102/62 05/02 0753 94 Room Air 05/02 0547 98.9 55 20 102/62 95 05/02 0000 Room Air 05/01 2226 98.0 105 18 120/78 98 Room Air 05/01 2204 57 120/78 05/01 1534 Room Air 05/01 1436 Room Air Intake & Output 05/02 1600 05/02 0800 05/02 0000 05/01 1600 05/01 0800 05/01 0000 Intake Total 50 130 520 Output Total 400 250 500 Balance -350 -120 20 Intake, IV 30 120 Intake, Oral 50 100 400 Number 1 Bowel Movements Output, Urine 400 250 500 Patient 157 lb 163 lb 161 lb Weight Weight Bed scale Bed scale Standing Scale Measurement Method Physical Exam: She is in no distress HEENT exam is normal Chest is clear Heart regular rhythm rate around 60, soft systolic murmur at the base Abdomen benign Extremities 1-2+ edema Current Medications: Current Medications Sig/Raghu Start time Last Medication Dose Route Stop Time Status Admin Acetaminophen 650 MG Q6P PRN 05/01 0900 AC PO Aspirin Buffered 81 MG DAILY 05/01 1000 AC 05/02 PO 0843 Carvedilol 25 MG BID 05/01 2200 AC 05/02 PO 0843 Cholecalciferol 400 IU DAILY 05/01 1000 AC 05/02 PO 0843 Ezetimibe 10 MG DAILY 05/01 1000 AC 05/02 PO 0843 Furosemide 40 MG DAILY 05/02 1000 AC 05/02 IV 0843 Heparin Sodium 5,000 UNIT Q8 05/010 AC 05/02 (Porcine) SC 1258 Heparin Sodium 25,000 UNIT Q24H 05/01 0700 DC 05/01 (Porcine) IV 0723 Sodium Chloride 500 ML Latanoprost 1 GTT QPM 05/01 2200 AC 05/01 OPH 2204 Multivitamins 1 TAB DAILY 05/01 1000 AC 05/02 Therapeutic PO 0843 Patient Medication 1 ED ONE ONE 05/02 1100 [facility] ED 05/02 1101 Results Last 48 Hrs of Labs/Mics: Laboratory Tests 05/02/17 0655: Anion Gap 12, Estimated GFR 28 L, BUN/Creatinine Ratio 21.8, Free T4 1.52, Total T3 0.98, TSH &T3 &Free T4 Intrp 7.930 H, CBC w Diff NO MAN DIFF REQ, RBC 2.85 L, MCV 103.4 H, MCH 34.3 H, MCHC 33.2, RDW 17.5 H, MPV 10.1, Gran % 54.5, Lymphocytes % 28.3, Monocytes % 11.9 H, Eosinophils % 4.6, Basophils % 0.7, Absolute Granulocytes 2.4, Absolute Lymphocytes 1.2, Absolute Monocytes 0.5 , Absolute Eosinophils 0.2, Absolute Basophils 0 05/01/17 2145: APTT Cancelled 05/01/17 1725: Troponin I 0.02 05/01/17 1407: Troponin I 0.02 05/01/17 1323: APTT > 120 *H 05/01/17 0527: Anion Gap 14, Estimated GFR 27 L, BUN/Creatinine Ratio 19.4, Glucose 108 H, Calcium 9.3, Total Bilirubin 0.8, Direct Bilirubin 0.4, AST 26, ALT 31, Alkaline Phosphatase 117, Troponin I 0.02, Jqv-Y-Kbeumvymmrf Pept 07217 H, Total Protein 7.1, Albumin 3.9, Amylase 57, Lipase 355 H, Vitamin B12 881, PT 13.9 H, INR 1.33 H, APTT > 120 *H, D-Dimer High Sensitivty 838 H, CBC w Diff NO MAN DIFF REQ, RBC 3.22 L, MCV 103.7 H, MCH 33.5 H, MCHC 32.3 L, RDW 16.9 H, MPV 9.5, Gran % 57.5, Lymphocytes % 24.0, Monocytes % 13.3 H, Eosinophils % 4.6, Basophils % 0.6, Absolute Granulocytes 3.0, Absolute Lymphocytes 1.3, Absolute Monocytes 0.7 H, Absolute Eosinophils 0.2, Absolute Basophils 0 Microbiology 05/01 0535 NASOPHARYN: Influenza Virus A & B Rapid Smear - COMP Recent Imaging Studies: PATIENT: TONIO RAMIREZ PRESENT AGE: 87 PATIENT ACCOUNT NO: [id number] : [birth year] LOCATION: [facility] ORDERING PHYSICIAN: Pollo Blackburn MD SERVICE DATE: 05/01/17- EXAM TYPE: NUC - LUNG SCAN (V/Q) EXAMINATION: PULMONARY VENTILATION PERFUSION STUDY CLINICAL INFORMATION: Persistent tachycardia and worsening shortness of breath. COMPARISON: No prior lung scan is available for comparison. A chest radiograph dated 05/01/2017, the same date as this lung scan, is available for comparison. TECHNIQUE: Serial gamma scintillation camera images were obtained over the posterior chest during the single breath, equilibrium rebreathing and washout of 10.1 mCi Xe 133 gas. The patient then received 3.6 mCi Tc-99m MAA intravenously and a 6-view perfusion study was performed. FINDINGS: Ventilation images: On the single breath and equilibrium images there is homogeneous distribution of gas bilaterally. During the washout phase there is no abnormal retention. Perfusion images: No segmental perfusion defects are present. There is some heterogeneity in the distribution of activity bilaterally. There is a very small subsegmental perfusion defect at the right lung apex an another tiny subsegmental defect posteriorly in the left mid lung field. Some heterogeneity is present in the other lung [place] but no additional focal anatomic appearing perfusion defects are present. The cardiac silhouette is moderately dilated. The contemporaneous chest radiograph shows possible trace bilateral pleural effusions and an enlarged cardiac silhouette. IMPRESSION: Low probability of pulmonary embolism. Cardiomegaly. DICTATED BY: Ney Whitten MD DATE/TIME DICTATED:05/01/171712 MOLD MOVER:RIANA DATE/TIME TRANSCRIBED:05/01/171712 CONFIDENTIAL, DO NOT COPY WITHOUT APPROPRIATE AUTHORIZATION. <Electronically signed in Other Vendor System> SIGNED BY: Ney Whitten MD [id number] Assessment/Plan Assessment/Plan The patient remains in sinus rhythm. She is diuresing. Dr. Perry's consultation is appreciated. I spoke to the patient regarding her preferences and she wishes to go with medical therapy for now. I will start her on amiodarone. If she becomes bradycardic on his medication we will cut back on the beta zena. I would restart her on Entresto. Hopefully she will tolerate this with regard to blood pressure. I will review her echocardiogram when it gets done, hopefully today. Continue telemetry? Yes
[2017-05-02 14:41] VITALS: BP 92/52
--- NOTE | 2017-05-02 19:29 | ECHOCARDIOGRAM REPORT ---
TONIO RAMIREZ Age: 87 : 1930 Gender: F Exam Date: 05/02/2017 17:11 Exam Location: [address] Ht (in): 61 Wt (lb): 163 BSA: 1.81 BP: 102 / 62 Ordering Physician: Pollo Blackburn MD Referring Physician: Juan Houston MD Chief, SoC Technologist: Tamra Nunez [facility] Room Number: [id number] Indications: SHORTNESS OF BREATH Rhythm: Sinus Technical Quality: Good FINDINGS Left Ventricle The left ventricle is distally dilated. The apex is dilated and akinetic. The lateral wall contracts failure. The interventricular septum is akinetic. Overall left ventricular systolic function is poor. Estimated ejection fraction is 20-25%. Definity contrast was used to improve suboptimal left ventricular endocardial definition. Right Ventricle Right ventricle not well visualized, grossly normal. Right Atrium Normal right atrial size. Left Atrium Mild left atrial dilatation. Mitral Valve Mild thickening/calcification of the mitral valve leaflets. Mild mitral annular calcification. Naii-gm-bcdfpcis mitral regurgitation. Aortic Valve Diffuse thickening of the aortic valve cusps with reduced excursion. There is minimal aortic stenosis. There is mild to moderate aortic regurgitation. Tricuspid Valve Tricuspid valve is normal in structure and function. Moderate tricuspid regurgitation. Right ventricular systolic pressure estimated to be elevated at 55-60 mmHg. Moderate to severe pulmonary hypertension. Pulmonic Valve Pulmonic valve not well visualized, grossly normal. Trace pulmonic regurgitation. Pericardium No pericardial or pleural effusion. Great Vessels Normal size aortic root. Dilated IVC. CONCLUSIONS The left ventricle is distally dilated. The apex is dilated and akinetic. The lateral wall contracts failure. The interventricular septum is akinetic. Overall left ventricular systolic function is poor. Estimated ejection fraction is 20-25%. Definity contrast was used to improve suboptimal left ventricular endocardial definition. Mild left atrial dilatation. Mild thickening/calcification of the mitral valve leaflets. Mild mitral annular calcification. Zvet-cw-pbemnjsz mitral regurgitation. Diffuse thickening of the aortic valve cusps with reduced excursion. There is minimal aortic stenosis. There is mild to moderate aortic regurgitation. Moderate tricuspid regurgitation. Right ventricular systolic pressure estimated to be elevated at 55- 60 mmHg. Moderate to severe pulmonary hypertension. Dilated IVC. Compared to previous echo of 09/12/2016 left ventricular function appears poorer on the current study. Juan Houston M.D. (Electronically Signed) Final Date: 02 May 2017 19:28 MEASUREMENTS (Male / Female) Normal Values 2D ECHO LV Diastolic Diameter PLAX 4.4 cm 4.2 - 5.9 / 3.9 - 5.3 cm LV Systolic Diameter PLAX 3.7 cm 2.1 - 4.0 cm LV Fractional Shortening PLAX 15.9 % 25 - 46 % LV Ejection Fraction 2D Teich 33.7 % IVS Diastolic Thickness 0.7 cm LVPW Diastolic Thickness 1.0 cm LV Relative Wall Thickness 0.4 RV Internal Dim ED PLAX 3.4 cm 1.9 - 3.8 cm LVOT Diameter 1.9 cm Aortic Root Diameter 2.7 cm LA Systolic Diameter LX 4.5 cm 3.0 - 4.0 / 2.7 - 3.8 cm LA Volume 46.0 cm 18 - 58 / 22 - 52 cm Ascending Aorta Diameter 2.7 cm DOPPLER AV Peak Velocity 182.0 cm/s AV Peak Gradient 13.2 mmHg AV Mean Velocity 126.0 cm/s AV Mean Gradient 7.0 mmHg AV Velocity Time Integral 38.3 cm AI Deceleration [place] 200.0 cm/s AI Peak Velocity 370.0 cm/s AI Pressure Half Time 542.0 ms AI Peak Gradient 54.8 mmHg LVOT Peak Velocity 92.5 cm/s LVOT Peak Gradient 3.4 mmHg LVOT Mean Velocity 60.4 cm/s LVOT Mean Gradient 2.0 mmHg LVOT Velocity Time Integral 20.5 cm LVOT Stroke Volume 58.1 cm AV Area Cont Eq vti 1.5 cm AV Area Cont Eq pk 1.4 cm MV Peak Velocity 113.0 cm/s MV Peak Gradient 5.1 mmHg MV Mean Velocity 56.7 cm/s MV Mean Gradient 2.0 mmHg Mitral E Point Velocity 105.0 cm/s MV PHT Velocity 116.0 cm/s MV Deceleration [place] 234.0 cm/s MV Pressure Half Time 148.7 ms MV Area PHT 1.5 cm MV Deceleration Time 165.0 ms TR Peak Velocity 330.0 cm/s TR Peak Gradient 43.6 mmHg Right Atrial Pressure 10.0 mmHg Pulmonary Artery Systolic Pressu 53.6 mmHg Right Ventricular Systolic Press 53.6 mmHg PV Peak Velocity 80.6 cm/s PV Peak Gradient 2.6 mmHg PV Mean Velocity 53.9 cm/s PV Mean Gradient 1.0 mmHg PV Velocity Time Integral 18.4 cm LV E' Lateral Velocity 6.8 cm/s Mitral E to LV E' Lateral Ratio 15.4 LV E' Septal Velocity 2.8 cm/s Mitral E to LV E' Septal Ratio 37.2
[2017-05-02 22:46] VITALS: BP 112/70
[2017-05-03 07:00] VITALS: BP 98/66
--- NOTE | 2017-05-03 07:19 | PN- Housestaff ---
Mariam SCHAFER,[facility] 05/03/17 0719: Subjective Follow-up For: shortness of breath Complaints: no complaints Tele-Events Since Last Visit: Sinus bradycardia and sinus rhythm heart rate 53-60 bpm. PVCs on monitor. Subjective: Patient was seen resting comfortably in the recliner. She denies any complaint at this emesis that she feels much improved. She denies shortness of breath, palpitations, chest pain, or lightheadedness. No overnight events. Review of Systems Constitutional: Denies: fever, weakness. Cardiovascular: Denies: chest pain, palpitations, peripheral edema. Respiratory: Denies: cough, orthopnea, short of breath. Gastrointestinal: Denies: abdominal pain, diarrhea. Objective Last 24 Hrs of Vital Signs/I&O Vital Signs Date Time Temp Pulse Resp B/P B/P Pulse O2 O2 Flow FiO2 Mean Ox Delivery Rate 05/03 0822 55 110/62 05/03 0822 55 110/62 05/03 0700 97.7 100 20 98/66 95 Room Air 05/03 0000 Room Air 05/02 2246 98.3 64 20 112/70 92 Room Air 05/02 2136 62 112/70 05/02 2136 62 112/70 05/02 1705 97.5 57 20 92/52 05/02 1600 95 Room Air Room Air 05/02 1441 97.5 57 20 /52 97 Room Air Intake & Output 05/03 1600 05/03 0800 05/03 0000 Intake Total 120 120 Output Total 550 950 Balance -430 -830 Intake, Oral 120 120 Number 1 Bowel Movements Output, Urine 550 950 Patient 157 lb Weight Weight Bed scale Measurement Method Physical Exam General Appearance: Alert, Oriented X3, Cooperative, No Acute Distress Skin: No Rashes Skin Temp/Moisture Exam: Warm/Dry Sepsis Skin Exam (color): Normal for Ethnicity HEENT: Atraumatic, PERRLA, EOMI, Mucous Membr. moist/pink Neck: Supple, No JVD, No thryomegaly Lymphatic: Cervical nl Cardiovascular: Regular Rate, Normal S1, Normal S2, No Murmurs Lungs: Clear to Auscultation, Normal Air Movement, Few basal crepitations Abdomen: Normal Bowel Sounds, Soft, No Tenderness, No Hepatospenomegaly Neurological: Normal Speech, Normal Tone, Cranial Nerves 3-12 NL Extremities: +1 trace Pitting pedal edema Current Medications: Current Medications Sig/Raghu Start time Last Medication Dose Route Stop Time Status Admin Acetaminophen 650 MG Q6P PRN 05/01 0900 AC PO Amiodarone HCl 200 MG TID 05/02 1315 AC 05/03 PO 0822 Aspirin Buffered 81 MG DAILY 05/01 1000 AC 05/03 PO 0821 Carvedilol 25 MG BID 05/01 2200 AC 05/03 PO 0822 Cholecalciferol 400 IU DAILY 05/01 1000 AC 05/03 PO 0821 Ezetimibe 10 MG DAILY 05/01 1000 AC 05/03 PO 0821 Furosemide 40 MG DAILY 05/02 1000 AC 05/03 IV 0821 Heparin Sodium 5,000 UNIT Q8 05/01 2200 AC 05/03 (Porcine) SC 1314 Latanoprost 1 GTT QPM 05/01 2200 AC 05/02 OPH 2136 Multivitamins 1 TAB DAILY 05/01 1000 AC 05/03 Therapeutic PO 0822 Sacubitril/Valsartan 1 TAB BID 05/03 1000 AC 05/03 PO 1033 Last 24 Hrs of Lab/Jose Guadalupe Results Last 24 Hrs of Labs/Mics: Laboratory Tests 05/03/17 0622: Anion Gap 14, Estimated GFR 33 L, BUN/Creatinine Ratio 26.0 H Assessment/Plan Assessment: 87-year-old woman with significant cardiac history: coronary artery disease status post CABG 3 for severe multivessel disease, long-standing hypertension, HFrEF (EF in 30s), hyperlipidemia, presented with worsening shortness of breath since February 2017, adherent with diuretic and diet recommendations, no physical exam evidence of acute on chronic CHF except for worsening leg swelling , with a proBNP less than previous admission, chest x-ray unrevealing of any pulmonary edema, but with a 1 month history of persistent tachycardia, uncontrolled with the use of higher doses of beta zena presentation concerning for thromboembolism-(acute versus subacute) versus CHF exacerbation. She is currently being managed in telemetry floor for the following issues: 1. Acute on chronic congestive heart failure (systolic): Patient's clinical features are suggestive of acute CHF, cardiac echocardiogram shows reduced ejection fraction of 25% and elevated right ventricular systolic pressures. She is diuresing well on IV Lasix and her creatinine is actually improving to 1.5 this morning. We will start Entresto this morning as soon as her brings it from home. We'll continue amiodarone as per crepe machine operator Dr. Perry. Monitor blood pressure closely. We'll discuss with ranch hand livestock as to timing of switching to by mouth Lasix. 2. Acute on chronic CKD. Likely cardio-renal syndrome: Patient's creatinine is improving with diuresis suggesting cardiorenal syndrome. We'll continue diuresis and following her blood pressure and creatinine. Will continue her other home meds otherwise (multi-vitamin). CHF diet. SQ heparin for DVT prophylaxis. DNR/DNI. Problem List: 1. Congestive heart failure 2. CHF exacerbation 3. Hypertension 4. Chest pain 5. Dyspnea 6. Elevated d-dimer 7. Elevated brain natriuretic peptide (BNP) level 8. Hyperlipidemia Pain Ratin Pain Location: None Pain Goal: Remain pain free Pain Plan: Tylenol as needed Tomorrow's Labs & Rationales: BEP for electrolytes on diuresis DVT/Prophylaxis: pharmacological Tiki SCHAFER,Ami 05/03/17 1102: Attending MD Review Statement Attending Statement Attending MD Statement: examined this patient, discuss w/resident/PA/TECHNICAL INSPECTOR, agreed w/resident/PA/TECHNICAL INSPECTOR, reviewed EMR data (avail), discussed with nursing, discussed with case mgmt, reviewed images Attending Assessment/Plan: Patient seen and examined. She feels better overall but still gets fairly short of breath with minimal activity and her legs are still swollen. Her blood pressure is also borderline but I think given her advanced systolic heart failure that's probably her baseline. We still have her on Lasix 40 mg IV daily for aggressive diurese his while watching the BUN and creatinine closely. It's slightly better today at 39 and 1.5. She is getting amiodarone loaded for the SVT that we think is contributing to her acute systolic heart failure and will talk to Dr. Houston about the total duration of the loading.
--- NOTE | 2017-05-03 12:00 | PN- Cardiology ---
Subjective Subjective: The patient is feeling well. She has no complaints of chest pain or shortness of breath. She states she is urinating a lot. She remains in sinus rhythm and sinus bradycardia. There have been no periods of supraventricular tachycardia since she has been here. Amiodarone was started yesterday. Her echocardiogram unfortunately shows very poor left ventricular systolic function. Objective Vital Signs and I&Os Vital Signs Date Time Temp Pulse Resp B/P B/P Pulse O2 O2 Flow FiO2 Mean Ox Delivery Rate 05/03 08 55 110/62 05/03 08 55 110/62 05/03 0700 97.7 100 20 98/66 95 Room Air 05/03 0000 Room Air 05/02 2246 98.3 64 20 112/70 92 Room Air 05/02 2136 62 112/70 05/02 2136 62 112/70 05/02 1705 97.5 57 20 92/52 05/02 1600 95 Room Air Room Air 05/02 1441 97.5 57 20 92/52 97 Room Air 05/02 1326 56 Intake & Output 05/03 1600 05/03 0800 05/03 0000 05/02 1600 05/02 0800 05/02 0000 Intake Total 120 120 820 50 130 Output Total 585 476 0645 400 250 Balance -430 -330 -480 -350 -120 Intake, IV 20 30 Intake, Oral 120 120 800 50 100 Number 1 1 Bowel Movements Output, Urine 585 130 6204 400 250 Patient 157 lb 157 lb Weight Weight Bed scale Bed scale Measurement Method Physical Exam: She is in no distress HEENT exam is normal Chest a few rhonchi Heart soft heart sounds, regular rhythm, no murmurs Extremities trace to 1+ edema Current Medications: Current Medications Sig/Raghu Start time Last Medication Dose Route Stop Time Status Admin Acetaminophen 650 MG Q6P PRN 05/01 0900 AC PO Amiodarone HCl 200 MG TID 05/02 1315 AC 05/03 PO 0822 Aspirin Buffered 81 MG DAILY 05/01 1000 AC 05/03 PO 0821 Carvedilol 25 MG BID 05/01 2199 AC 05/03 PO 0822 Cholecalciferol 400 IU DAILY 05/01 1000 AC 05/03 PO 0821 Ezetimibe 10 MG DAILY 05/01 1000 AC 05/03 PO 0821 Furosemide 40 MG DAILY 05/02 1000 AC 05/03 IV 0821 Heparin Sodium 5,000 UNIT Q8 05/01 2199 AC 05/03 (Porcine) MI 0542 Latanoprost 1 GTT QPM 05/01 2200 AC 05/02 OPH 2136 Multivitamins 1 TAB DAILY 05/01 1000 AC 05/03 Therapeutic PO 0822 Sacubitril/Valsartan 1 TAB BID 05/03 1000 AC 05/03 PO 1033 Results Last 48 Hrs of Labs/Mics: Laboratory Tests 05/03/17 0622: Anion Gap 14, Estimated GFR 33 L, BUN/Creatinine Ratio 26.0 H 05/02/17 0655: Anion Gap 12, Estimated GFR 28 L, BUN/Creatinine Ratio 21.8, Free T4 1.52, Total T3 0.98, TSH &T3 &Free T4 Intrp 7.930 H, CBC w Diff NO MAN DIFF REQ, RBC 2.85 L, MCV 103.4 H, MCH 34.3 H, MCHC 33.2, RDW 17.5 H, MPV 10.1, Gran % 54.5, Lymphocytes % 28.3, Monocytes % 11.9 H, Eosinophils % 4.6, Basophils % 0.7, Absolute Granulocytes 2.4, Absolute Lymphocytes 1.2, Absolute Monocytes 0.5 , Absolute Eosinophils 0.2, Absolute Basophils 0 05/01/17 2145: APTT Cancelled 05/01/17 1725: Troponin I 0.02 05/01/17 1407: Troponin I 0.02 05/01/17 1323: APTT > 120 *H Recent Imaging Studies: CONCLUSIONS The left ventricle is distally dilated. The apex is dilated and akinetic. The lateral wall contracts failure. The interventricular septum is akinetic. Overall left ventricular systolic function is poor. Estimated ejection fraction is 20-25%. Definity contrast was used to improve suboptimal left ventricular endocardial definition. Mild left atrial dilatation. Mild thickening/calcification of the mitral valve leaflets. Mild mitral annular calcification. [id number] mitral regurgitation. Diffuse thickening of the aortic valve cusps with reduced excursion. There is minimal aortic stenosis. There is mild to moderate aortic regurgitation. Moderate tricuspid regurgitation. Right ventricular systolic pressure estimated to be elevated at 55- 60 mmHg. Moderate to severe pulmonary hypertension. Dilated IVC. Compared to previous echo of 09/12/2016 left ventricular function appears poorer on the current study. Juan Houston M.D. (Electronically Signed) Final Date: 02 May 2017 19:28 Assessment/Plan Assessment/Plan There have been no episodes of SVT. The patient remains in sinus rhythm. She is diuresing. She was started on amiodarone and and Entresto was restarted. Her blood pressure has been maintained. I recommend monitoring her for another day on this regimen and then probably she can be discharged. Unfortunately her prognosis is very poor considering her age and left ventricular systolic function. I don't think she is a good candidate for a prophylactic defibrillator but I will run this by Dr. Perry. Continue telemetry? Yes
[2017-05-03 14:04] VITALS: BP 100/52
[2017-05-03] MEDS ORDERED: AMIODARONE HCL200 M2 PO (15:32)
--- NOTE | 2017-05-03 15:39 | Patient Discharge Instructions ---
Discharge Instructions General Discharge Information You were seen/treated for: 1. Shortness of breath, Congestive heart failure, tachycardia. Watch for these problems: Worsening shortness of breath Special Instructions: 1. Follow up with your primary care provider within 1 week of discharge 2. Follow up with your dictating transcribing machine servicer, Dr. Houston within 1 week of discharge 3. Take your medications as directed Diet Continue normal diet: No Recommended Diet: Heart Healthy Activity Full Activity/No Limits: No Activity Self Limited: Yes Acute Coronary Syndrome Inclusion Criteria At DC or during hospital stay patient has or had the following: ACS DIAGNOSIS No Discharge Core Measures Meds if any: Prescribed or Continued at Discharge Meds if any: NOT Prescribed or Continued at Discharge Congestive Heart Failure Inclusion Criteria At DC or during hospital stay patient has or had the following: CHF DIAGNOSIS No Discharge Core Measures Meds if any: Prescribed or Continued at Discharge Meds if any: NOT Prescribed or Continued at Discharge Cerebrovascular accident Inclusion Criteria At DC or during hospital stay patient has or had the following: CVA/TIA Diagnosis No Discharge Core Measures Meds if any: Prescribed or Continued at Discharge Meds if any: NOT Prescribed or Continued at Discharge Venous thromboembolism Inclusion Criteria VTE Diagnosis No VTE Type NONE VTE Confirmed by (Test) NONE Discharge Core Measures - Per Current guidelines, there needs to be overlap - treatment for the first 5 days of Warfarin therapy. - If discharged on Warfarin prior to 5 days of - overlap therapy, the patient will need to be - assessed for post discharge needs including - *Post discharge parental anticoagulation - *Warfarin and/or parental anticoagulation education - *Follow up date to check INR post discharge At least 5 days overlap therapy as Inpatient No Meds if any: Prescribed or Continued at Discharge Note: Overlap Therapy is Warfarin and Anticoagulant Meds if any: NOT Prescribed or Continued at Discharge
[2017-05-03] MEDS ORDERED: LASIX40 M1 PO (15:41)
[2017-05-03 22:35] VITALS: BP 98/54
--- NOTE | 2017-05-03 23:14 | Discharge Summary ---
Visit Information Visit Dates Admission Date: 05/01/17 Discharge Date: 05/04/17 Hospital Course Course Attending Physician: Tiki SCHAFER,Ami Croft Primary Care Physician: Bia SCHAFER,Juan Medellin Consulting Request: Consulting Specialty: Cardiology Consulting Physician: Dr. Houston Reason for Consult: Congestive heart failure Hospital Course: Ms. Lakhani is an 87 year old woman with a past medical history of coronary artery disease status post CABG 3 for severe multivessel disease, long-standing hypertension and hyperlipidemia who presented to [facility] with a chief complaint of worsening shortness of breath for 4 months that worsened acutely over the preceding 3 days. She had been admitted 4 months prior for CHF and her shortness of breath began shortly after she got home. In addition, she had worsening of her leg swelling along with orthopnea and palpitations. She had recently been noticed to have tachycardia by her health lead during her clinic visits. She also had worsening leg edema despite being extremely compliant with her Lasix and diet. Physical Exam at presentation was as follows: General Appearance Alert, Oriented X3, Cooperative, Mild Distress Sepsis Skin Exam (color): Normal for Ethnicity HEENT Atraumatic, PERRLA, Mucous Membr. moist/pink Cardiovascular Regular Rate, Normal S1, Normal S2 Lungs bilateral bibasilar crackles. Otherwise good air movement and upper and middle lobe. Abdomen Normal Bowel Sounds, Soft, distended. Extremities No Clubbing, 2+ pitting edema bilaterally., no tenderness. Serial EKGs and troponins were negative for an acute myocardial infarct. An echocardiogram showed a reduced EF of 20-25% and an elevated right ventricular systolic pressure of 55-60 mm hg. She was initially thought to have a pulmonary embolus, but this was ruled out by a negative VQ scan. She was diuresed with IV lasix 40 mg daily and her symptoms improved, particularly her shortness of breath and pedal edema. She was reviewed by health lead Dr. Houston and electophysiologist Dr. Perry on account of her tachycardia. This was thought to be ectopic atrial tachycardia. The option was offered to treat her tacchyarhythmia with an ablation procedure or conservative management with PO amiodarone. The patient chose a conservative approach and was started on PO amiodarone which she continued at discharge. Her intermittent tachycardia resolved on admission. She was discharged on an increased dose of lasix 40 mg BID with instructions to follow up within 1 week at the [facility] Heart Failure clinic and with her health lead, Dr. Houston. She was continued on her other home medications including entresto for heart failure. Allergies: Coded Allergies: Penicillins (Intermediate, RASH 02/17/17) Disposition Summary Disposition Principal Diagnosis: 1. Congestive heart failure with reduced ejection fraction 2. Automatic atrial tachycardia Additional Diagnosis: 3. Acute kidney injury on chronic kidney disease Discharge Disposition: home or self care Discharge Instructions General Discharge Information Code Status: Do Not Resucitate/Intubat Patient's Diet: CHF diet Patient's Activity: Self limited activity Follow-Up Instructions/Appts: 1. Follow up with your primary care provider within 1 week of discharge 2. Follow up with your health lead, Dr. Houston within 1 week of discharge 3. Take your medications as directed Medications at Discharge Discharge Medications: Stop taking the following medications: Furosemide (Lasix) 40 MG TABLET ORAL DAILY Qty = 60 Continue taking these medications: Dorzolamide HCl/Timolol Maleat (Cosopt Eye Drops) 22.3 MG-6.8 MG/ML DROPS 1 Drop Right Eye TWICE DAILY Qty = 10 Comments: NOT GIVEN IN HOSPITAL Latanoprost (Latanoprost) 0.005 % DROPS 1 Drop Both Eyes Every night Qty = 8 Comments: Last Taken:02/18/17 Time:2130 Ezetimibe (Zetia) 10 MG TABLET 1 Tablet ORAL DAILY Qty = 90 Comments: Last Taken:05/04/17 Time:08 Aspirin (Ecotrin*) 81 MG TABLET. 1 Tablet ORAL DAILY Comments: Last Taken:05/04/17 Time:08 Multiple Vitamin (Multivitamins) 1 EACH TABLET 1 Tablet ORAL DAILY Comments: Last Taken: 05/04/17 Time: 08 Fish Oil/Dha/Epa (Fish Oil 1,200 MG Fish Oil) 1,200 MG-144 MG-216 MG CAPSULE 1 Capsule ORAL DAILY Comments: NOT GIVEN IN HOSPITAL Cholecalciferol (Vitamin D3) (Vitamin D) 1,000 UNIT TABLET 1 Tablet ORAL DAILY Comments: Last Taken: 05/04/17 Time: 08 Vit C/E/Zn/Coppr/Lutein/Zeaxan (Preservision Areds 2 Softgel) 250-200-40 CAPSULE 1 Capsule ORAL TWICE DAILY Comments: NOT GIVEN IN HOSPITAL Psyllium Husk (Metamucil) (Unknown Strength) POWDER Unknown Dose ORAL TWICE DAILY Comments: NOT GIVEN IN HOSPITAL Carvedilol (Carvedilol) 25 MG TABLET 1 Tablet ORAL TWICE DAILY Comments: Last Taken: 05/04/17 Time: 805 Sacubitril/Valsartan (Entresto 24 MG-26 MG Tablet) 24 MG-26 MG TABLET 1 Tablet ORAL DAILY Comments: Last Taken: 05/04/17 Time: 805 Start taking the following new medications: Amiodarone HCl (Amiodarone HCl) 200 MG TABLET 0 ORAL As Directed Qty = 120 No Refills Instructions: On Take 05/04-05/08 1 tablet 3 times a day and then 2 times a day for one week Comments: Last Taken: 05/04/17 Time: 805 Furosemide (Lasix) 40 MG TABLET 1 Tablet ORAL TWICE DAILY Qty = 60 No Refills Instructions: Please take as prescribed Comments: Last Taken: 05/04/17 Time: 805 IV LASIX GIVEN Copies To: Celso SCHAFER,Juan Dhillon
[2017-05-04 06:45] VITALS: BP 110/60
--- NOTE | 2017-05-04 07:15 | PN- Housestaff ---
Mariam SCHAFER,[facility] 05/04/17 0714: Subjective Follow-up For: shortness of breath Complaints: no complaints Tele-Events Since Last Visit: Sinus bradycardia. First-degree heart block. Heart rate 51-55 bpm. Few PVCs. Subjective: Patient was seen resting comfortably in the recliner. She denies any complaint this morning. She is looking forward to going home today. She denies shortness of breath, palpitations, chest pain, or lightheadedness. No overnight events. Review of Systems Constitutional: Denies: chills, fever, weakness. Cardiovascular: Reports: edema (improved). Denies: chest pain, orthopena, palpitations. Respiratory: Denies: cough, hemoptysis, orthopnea, short of breath, sputum production. Gastrointestinal: Denies: abdominal pain, diarrhea, nausea, vomiting. Musculoskeletal: Denies: joint pain, joint swelling. Objective Last 24 Hrs of Vital Signs/I&O Vital Signs Date Time Temp Pulse Resp B/P B/P Pulse O2 O2 Flow FiO2 Mean Ox Delivery Rate 05/04 0806 51 110/60 05/04 0806 97.8 51 110/60 05/04 0645 97.8 51 12 110/60 97 Room Air 05/03 2235 98.2 55 16 98/54 97 Room Air 05/03 2057 52 110/52 05/037 53 110/52 05/03 1622 102/54 Intake & Output 05/04 1600 05/04 0800 05/04 0000 Intake Total 100 250 Output Total 350 250 Balance -250 0 Intake, Oral 100 250 Output, Urine 350 250 Patient 159 lb Weight Weight Bed scale Measurement Method Physical Exam General Appearance: Alert, Oriented X3, Cooperative, No Acute Distress Skin: No Rashes Skin Temp/Moisture Exam: Warm/Dry Sepsis Skin Exam (color): Normal for Ethnicity HEENT: Atraumatic, PERRLA, EOMI, Mucous Membr. moist/pink Neck: Supple, No JVD, No thryomegaly Lymphatic: Cervical nl Cardiovascular: Regular Rate, Normal S1, Normal S2, No Murmurs Lungs: Clear to Auscultation, Normal Air Movement Abdomen: Normal Bowel Sounds, Soft, No Tenderness, No Hepatospenomegaly, No Masses Neurological: Normal Speech, Strength at 5/5 X4 Ext, Normal Tone, Cranial Nerves 3-12 NL Extremities: grade 2+ bilateral pedal edema. Improved compared to prior. Current Medications: Current Medications Sig/Raghu Start time Last Medication Dose Route Stop Time Status Admin Acetaminophen 650 MG Q6P PRN 05/01 0900 DCD PO Amiodarone HCl 200 MG TID 05/02 1315 DCD 05/04 PO 0806 Aspirin Buffered 81 MG DAILY 05/01 1000 DCD 05/04 PO 0805 Carvedilol 25 MG BID 05/01 2200 DCD 05/04 PO 0806 Cholecalciferol 400 IU DAILY 05/01 1000 DCD 05/04 PO 0806 Ezetimibe 10 MG DAILY 05/01 1000 DCD 05/04 PO 0806 Furosemide 40 MG DAILY 05/02 1000 DCD 05/04 IV 0806 Heparin Sodium 5,000 UNIT Q8 05/01 2200 DCD 05/04 (Porcine) SC 0612 Latanoprost 1 GTT QPM 05/01 2200 DCD 05/03 OPH 2105 Multivitamins 1 TAB DAILY 05/01 1000 DCD 05/04 Therapeutic PO 0806 Patient Medication 1 ED ONE ONE 05/04 1145 DC Teaching ED 05/04 1146 Patient Medication 1 ED ONE 05/04 0000 NR Teaching ED 05/04 2359 Sacubitril/Valsartan 1 TAB BID 05/03 1000 DCD 05/04 PO 0807 Last 24 Hrs of Lab/Jose Guadalupe Results Last 24 Hrs of Labs/Mics: Laboratory Tests 05/04/17 0622: Anion Gap 13, Estimated GFR 27 L, BUN/Creatinine Ratio 21.1 Assessment/Plan Assessment: 87-year-old woman with significant cardiac history: coronary artery disease status post CABG 3 for severe multivessel disease, long-standing hypertension, HFrEF (EF in 30s), hyperlipidemia, presented with worsening shortness of breath since February 2017, adherent with diuretic and diet recommendations, no physical exam evidence of acute on chronic CHF except for worsening leg swelling , with a proBNP less than previous admission, chest x-ray unrevealing of any pulmonary edema, but with a 1 month history of persistent tachycardia, uncontrolled with the use of higher doses of beta zena presentation concerning for thromboembolism-(acute versus subacute) versus CHF exacerbation. She is currently being managed in telemetry floor for the following issues: 1. Acute on chronic congestive heart failure (systolic): Patient's clinical features are suggestive of acute CHF, cardiac echocardiogram shows reduced ejection fraction of 25% and elevated right ventricular systolic pressures. She is diuresing well on IV Lasix. Patient's creatinine is back up to 1.8 this morning. However she continues to have overall improvement and denies shortness of breath. She was reviewed by vp production Dr. Houston and recommends her to be discharged home on by mouth Lasix 40 mg twice a day. Continue by mouth Entresto on discharge 2. Automatic Atrial tachycardia Patient was noted to have a fast heart rate on admission and was reviewed by vp production Dr. Houston and cut press operator Dr. Nichols. She has been started on loading dose of amiodarone for control of automatic atrial tachycardia. She has been slightly bradycardic in the 50s to 55 range overnight We'll complete loading dose of amiodarone on discharge and agent is to follow-up with vp production Dr. Houston within 1 week of discharge for possible adjustment of her medications. 3. Acute on chronic CKD. Likely cardio-renal syndrome: Patient's creatinine is back up to 1.8 this morning. However she continues to have overall improvement and denies shortness of breath. She was reviewed by vp production Dr. Houston and recommends her to be discharged home on by mouth Lasix 40 mg twice a day. He'll follow up closely with the CHF clinic on discharge and also follow-up with Dr. Houston within 1 week of discharge for adjustment of her medications as needed. Will continue her other home meds otherwise (multi-vitamin). CHF diet. SQ heparin for DVT prophylaxis. DNR/DNI. Problem List: 1. Congestive heart failure 2. Hypertension 3. Atrial tachycardia Pain Ratin Pain Location: None Pain Goal: Remain pain free Pain Plan: Tylenol when necessary Tomorrow's Labs & Rationales: No needed Consulting Request: Consulting Specialty: Cardiology Consulting Physician: Dr. Houston Reason for Consult: Congestive heart failure Ami Fairbanks MD 05/04/17 1332: Attending MD Review Statement Attending Statement Attending MD Statement: examined this patient, discuss w/resident/PA/INVENTORY AND PRICING ASSOCIATE, agreed w/resident/PA/INVENTORY AND PRICING ASSOCIATE, reviewed EMR data (avail), discussed with nursing, reviewed images Attending Assessment/Plan: Patient feels well and is eager to go home. She was seen by Dr. Evin Santos who wants her on the current regimen of 40 twice a day of Lasix with the amiodarone loading. Her BUN and creatinine continue to be elevated but clinically she is still volume overloaded. She is going to follow-up closely with Dr. Evin Santos and she knows that she has a CHF clinic appointment within the week.
[2017-05-04 08:06] VITALS: BP 110/60
--- NOTE | 2017-05-04 10:08 | PN- Cardiology ---
Subjective Subjective: She is feeling well. She is sitting in a chair. She wants to be discharged. There have been no episodes of SVT. She remains in sinus rhythm and sinus bradycardia with first-degree AV block. Her echo showed poor LV function but she is not clinically in congestive heart failure at this time. Objective Vital Signs and I&Os Vital Signs Date Time Temp Pulse Resp B/P B/P Pulse O2 O2 Flow FiO2 Mean Ox Delivery Rate 05/04 08 51 110/60 05/04 0806 97.8 51 110/60 05/04 0645 97.8 51 12 110/60 97 Room Air 05/03 2235 98.2 55 16 98/54 97 Room Air 05/03 2058 52 110/52 05/03 2057 53 110/52 05/03 1622 102/54 05/03 1404 97.4 51 18 100/52 95 Room Air Intake & Output 05/04 1600 05/04 0800 05/04 0000 05/03 1600 05/03 0800 05/03 0000 Intake Total 100 250 375 120 120 Output Total 350 250 400 550 950 Balance -250 0 -25 -430 -830 Intake, Oral 100 250 375 120 120 Number 1 Bowel Movements Output, Urine 350 250 400 550 950 Patient 159 lb 157 lb Weight Weight Bed scale Bed scale Measurement Method Physical Exam: She is in no distress HEENT exam is normal Chest is clear Heart regular rhythm, mildly bradycardic Extremities edema improving Current Medications: Current Medications Sig/Raghu Start time Last Medication Dose Route Stop Time Status Admin Acetaminophen 650 MG Q6P PRN 05/01 0900 DCD PO Amiodarone HCl 200 MG TID 05/02 1315 DCD 05/04 PO 0806 Aspirin Buffered 81 MG DAILY 05/01 1000 DCD 05/04 PO 0805 Carvedilol 25 MG BID 05/01 2200 DCD 05/04 PO 0806 Cholecalciferol 400 IU DAILY 05/01 1000 DCD 05/04 PO 0806 Ezetimibe 10 MG DAILY 05/01 1000 DCD 05/04 PO 0806 Furosemide 40 MG DAILY 05/02 1000 DCD 05/04 IV 0806 Heparin Sodium 5,000 UNIT Q8 05/010 DCD 05/04 (Porcine) SC 0612 Latanoprost 1 GTT QPM 05/010 DCD 05/03 OPH 2105 Multivitamins 1 TAB DAILY 05/01 1000 DCD 05/04 Therapeutic PO 0806 Patient Medication 1 ED ONE 05/04 0000 TN Teaching ED 05/04 2359 Sacubitril/Valsartan 1 TAB BID 05/03 1000 DCD 05/04 PO 0807 Results Last 48 Hrs of Labs/Mics: Laboratory Tests 05/04/17 0622: Anion Gap 13, Estimated GFR 27 L, BUN/Creatinine Ratio 21.1 Recent Imaging Studies: CONCLUSIONS The left ventricle is distally dilated. The apex is dilated and akinetic. The lateral wall contracts failure. The interventricular septum is akinetic. Overall left ventricular systolic function is poor. Estimated ejection fraction is 20-25%. Definity contrast was used to improve suboptimal left ventricular endocardial definition. Mild left atrial dilatation. Mild thickening/calcification of the mitral valve leaflets. Mild mitral annular calcification. [id number] mitral regurgitation. Diffuse thickening of the aortic valve cusps with reduced excursion. There is minimal aortic stenosis. There is mild to moderate aortic regurgitation. Moderate tricuspid regurgitation. Right ventricular systolic pressure estimated to be elevated at 55- 60 mmHg. Moderate to severe pulmonary hypertension. Dilated IVC. Compared to previous echo of 09/12/2016 left ventricular function appears poorer on the current study. Juan Houston M.D. (Electronically Signed) Final Date: 02 May 2017 19:28 Assessment/Plan Assessment/Plan The patient is stable. She is remaining in sinus rhythm with first-degree AV block without any further SVTs. She is little bit bradycardic. She is on amiodarone and Coreg. Her left ventricular systolic function is poor. I recommend discharging her on Lasix 80 mg daily, amiodarone 600 mg daily for one week and then 400 mg daily. I will see her in the office soon. If she remains bradycardic I will probably cut back on her Coreg at that time but for now I would discharge her on the current dose. Continue telemetry? Not applicable
[2017-05-04] MEDS ORDERED: AMIODARONE HCL200 M2 PO ×2 (11:16→11:17)
[2017-05-04] MEDS ORDERED: LASIX40 M1 PO ×2 (11:16→11:17)
== END 2017-05-04 12:35 | DRG 291 ==
LOC: ERH 04:56 → 1NO 07:58 → ERHI 07:58 → ENRESERV 09:25 → ENTRNSPT 10:40 → EDTRNSPT 11:16 → EDTRNSPTSTS 11:16 → CMPTRNSPT 11:31 → 1NO 11:32 → ENPENDDIS 05-04 11:13 → ENTRNSPT 05-04 12:00 → EDTRNSPTSTS 05-04 12:29 → 1NO 05-04 12:35 → CMPTRNSPT 05-04 13:13
PROVIDERS: Internal Medicine Hematology & Oncology; Pediatrics
DX: I13.0 Hypertensive heart and chronic kidney disease with heart failure and stage 1 through stage 4 chronic kidney disease, or unspecified chronic kidney disease (principal); I50.43 Acute on chronic combined systolic (congestive) and diastolic (congestive) heart failure; N17.9 Acute kidney failure, unspecified; I47.1 Supraventricular tachycardia; Z95.1 Presence of aortocoronary bypass graft; N18.9 Chronic kidney disease, unspecified; I44.0 Atrioventricular block, first degree; E78.5 Hyperlipidemia, unspecified; M81.0 Age-related osteoporosis without current pathological fracture
CPT/HCPCS: 1NP; 36415; 36592; 71045; 78582; 82436; 87804; 87804-59; 93005; 93010; A9540; A9558; C8929; J1644; J1940; Q9957